=== PATIENT | female | born 1940 | race Caucasian/White ===

== ENCOUNTER → 2022-03-23 | Outpatient (CLI) | payer MEDICARE ==
--- NOTE | 2022-03-23 15:47 | XR ---
EXAMINATION TYPE: XR ankle complete LT DATE OF EXAM: 03/23/2022 COMPARISON: NONE HISTORY: Left ankle pain. TECHNIQUE: 3 views of the left ankle are submitted for evaluation. FINDINGS: Diffuse bone mineralization limits evaluation. There is no evidence for fracture or disloca tion. Ankle mortise is intact. Soft tissue swelling of the ankle. Plantar calcaneal enthesophyte. Vas cular sclerosis. IMPRESSION: 1. No evidence for acute fracture or dislocation. 2. Soft tissue swelling of the ankle.
== END | disposition home or self-care (01) ==
LOC: RADXRMAIN 15:22
PROVIDERS: ATTEND Nurse Practitioner Family
DX: M79.89 Other specified soft tissue disorders (principal); M25.572 Pain in left ankle and joints of left foot

== ENCOUNTER 2022-06-03 10:41 | Inpatient (IN) | payer MEDICARE ==
--- NOTE | 2022-06-03 11:47 | XR ---
EXAMINATION TYPE: XR chest 2V DATE OF EXAM: 06/03/2022 COMPARISON: None INDICATION: Difficulty in breathing TECHNIQUE: Frontal and lateral views of the chest are obtained. FINDINGS: The heart size is normal. The pulmonary vasculature is normal. There is a moderate to large right pleural effusion. Small nodularity is in the right peripheral upp er lung field measuring 1 cm. Follow-up is recommended.. IMPRESSION: 1. Moderate to large right pleural effusion. 2. There is a 1 cm nodular density peripheral right upper lung field. Follow-up recommended.
[2022-06-03 12:47] LABS: Basophils % (A) 0 %; Eosinophils # (A) 0.1 k/uL (0-0.7); Eosinophils % (A) 1 %; HCT 43.6 % (34.0-46.0); HGB 14.7 gm/dL (11.4-16.0); Lymphocytes # (A) 2.1 k/uL (1.0-4.8); Lymphocytes % (A) 20 %; MCH 32.6 pg (25.0-35.0); MCHC 33.6 g/dL (31.0-37.0); MCV 96.9 fL (80.0-100.0); Mean Platelet Volume 8.6; Monocytes # (A) 0.6 k/uL (0-1.0); Monocytes % (A) 5 %; Neutrophils # (A) 7.7 k/uL (1.3-7.7); Neutrophils % (A) 73 %; Platelet Count 298 k/uL (150-450); RDW 12.7 % (11.5-15.5); WBC 10.6 k/uL (3.8-10.6)
[2022-06-03 12:48] LABS: VBG PH 7.55 (7.31-7.41)
[2022-06-03 13:09] LABS: Calcium 9.3 mg/dL (8.4-10.2); Potassium 4.8 mmol/L (3.5-5.1); Total Bilirubin 0.9 mg/dL (0.2-1.3)
[2022-06-03 13:10] LABS: Total Protein 7.5 g/dL (6.3-8.2)
--- NOTE | 2022-06-03 13:15 | ED ---
SOB HPI - General Chief Complaint: Shortness of Breath Stated Complaint: sob Time Seen by Provider: 06/03/22 11:52 Source: patient, family Mode of arrival: wheelchair Limitations: no limitations - History of Present Illness Initial Comments: Patient is an 81-year-old female who presents to the emergency department with chief complaint shortness of breath. Symptoms started 1 week ago. Shortness of breath is not getting worse however patient is not feeling any improvement. States she feels very winded with activity. She does admit to intermittent dry cough. She denies fever, chills, other upper respiratory symptoms, chest pain, lightheadedness, dizziness, abdominal pain, nausea, vomiting. Denies past and present use of tobacco. Denies history of asthma and COPD - Related Data Home Medications Medication Instructions Recorded Confirmed Atorvastatin [Lipitor] 10 mg PO DAILY 06/03/22 06/03/22 Calcium Carbonate [Tums] 1,000 mg PO TID PRN 06/03/22 06/03/22 Famotidine/Ca Carb/Mag Hydrox 1 tab PO TID PRN 06/03/22 06/03/22 [Pepcid Complete Tablet Chew] Levothyroxine Sodium [Synthroid] 88 mcg PO DAILY 06/03/22 06/03/22 glipiZIDE [glipiZIDE ER] 2.5 mg PO DAILY 06/03/22 06/03/22 sitaGLIPtin PHOS/metFORMIN HCL 1 tab PO BID 06/03/22 06/03/22 [Janumet 50-500 mg Tablet] Allergies Allergy/AdvReac Type Severity Reaction Status Date / Time Fish Containing Products Allergy Nausea & Verified 06/03/22 12:29 [Fish] Vomiting Sulfa (Sulfonamide Allergy Rash/Hives Verified 06/03/22 12:29 Antibiotics) Review of Systems ROS Statement: Those systems with pertinent positive or pertinent negative responses have been documented in the HPI. ROS Other: All systems not noted in ROS Statement are negative. Past Medical History Past Medical History: Diabetes Mellitus, Thyroid Disorder Additional Past Medical History / Comment(s): graves disease History of Any Multi-Drug Resistant Organisms: None Reported Past Surgical History: Cholecystectomy, Hysterectomy Past Psychological History: No Psychological Hx Reported Smoking Status: Never smoker Past Alcohol Use History: None Reported Past Drug Use History: None Reported General Exam Limitations: no limitations General appearance: alert, in no apparent distress Head exam: Present: atraumatic, normocephalic, normal inspection Eye exam: Present: normal appearance, PERRL, EOMI. Absent: scleral icterus, conjunctival injection, periorbital swelling ENT exam: Present: normal exam, other (no tracheal deviation ) Respiratory exam: Present: decreased breath sounds (right sided, more so in lower lung bo). Absent: normal lung sounds bilaterally, respiratory distress, wheezes, rales, rhonchi, stridor, chest wall tenderness, accessory muscle use, prolonged expiratory Cardiovascular Exam: Present: regular rate, normal rhythm, normal heart sounds. Absent: systolic murmur, diastolic murmur, rubs, gallop, clicks GI/Abdominal exam: Present: soft, normal bowel sounds. Absent: distended, tenderness, guarding, rebound, rigid Neurological exam: Present: alert, oriented X3, CN II-XII intact Psychiatric exam: Present: normal affect, normal mood Skin exam: Present: warm, dry, intact, normal color. Absent: rash Course Vital Signs 06/03/22 06/03/22 06/03/22 10:58 12:40 14:04 Temperature 97.8 F Pulse Rate 98 98 Respiratory 20 18 20 Rate Blood Pressure 142/89 148/86 O2 Sat by Pulse 96 96 Oximetry 06/03/22 06/03/22 06/03/22 15:51 15:55 17:22 Temperature Pulse Rate 100 100 104 H Respiratory 18 18 18 Rate Blood Pressure 136/76 139/83 139/83 O2 Sat by Pulse 94 L 96 96 Oximetry Medical Decision Making - Medical Decision Making Was pt. sent in by a medical professional or institution? No Did you speak to anyone other than the patient for history? No Did you review nursing and triage notes? No, patient is short of breath however breath sounds on the right are not absent. They are diminished. Were old charts reviewed? Yes Differential Diagnosis? Coronary syndrome, arrhythmia, tamponade, asthma, COPD, pulmonary embolism, pneumonia, pneumothorax, pulmonary effusion, this is not meant to be an all- inclusive list. EKG interpreted by me (3pts min.)? Yes, showing sinus rhythm without ST segment or T-wave abnormality. Ventricular rate 96, MA interval 148, QRS duration 82, QTC 397 X-rays interpreted by me (1pt min.)? Yes, x-ray obtained and interpreted by me which shows moderate to large right pleural effusion. There is also 1 cm nodular density in the peripheral right upper lung field CT interpreted by me (1pt min.)? Yes, CT of the chest with angio obtained and interpreted by me which is negative for PE. It does show a nodular density in the peripheral right upper lung field with eccentric calcification and right-sided pleural effusion. U/S interpreted by me (1pt. min.)? NA What testing was considered but not performed? (CT, X-rays, U/S, labs)? Why? NA What meds were considered but not given? Why? None Did you discuss the management of the patient with other professionals? Yes, I discussed this case my attending Dr. Cuevas. Did you reconcile home meds? Yes Was smoking cessation discussed for >3mins.? NA Was critical care preformed (if so, how long)? No Were there social determinants of health that impacted care today? How? (Homelessness, low income, unemployed, alcoholism, drug addiction, transportation, low edu. Level, literacy, decrease access to med. care, nursing home, rehab)? No Was there de-escalation of care discussed even if they declined? (Discuss DNR or withdrawal of care, Hospice)? No What co-morbidities impacted this encounter? (DM, HTN, Smoking, COPD, CAD, Cancer, CVA, Hep., AIDS, mental health diagnosis, sleep apnea, morbid obesity)? DM Was patient admitted / discharged? This is an 81-year-old female presenting with shortness of breath. Patient well appearing with no increase work of breathing. No hypoxia. There are dimin ished lung sounds on the right, mainly lower lung bo. Troponin, BNP within normal limits. D-dimer elevated at 2.07. COVID-19, RSV, influenza and not detected. Chest x-ray shows moderate to large right pleural effusion. No previous chest x-ray for comparison. Patient denies history pleural effusion. CT angiogram of the chest negative for PE. At this time the etiology pleural effusion is unknown. Patient will be admitted for thoracentesis. Case discussed with Dr. Case who accepts admission. Pulmonary on consult. Undiagnosed new problem with uncertain prognosis? No Drug Therapy requiring intensive monitoring for toxicity (Heparin, Nitro, Insulin, Cardizem)? No Were any procedures done? No Diagnosis/symptom? SOB, right pleural effusion Acute, or Chronic, or Acute on Chronic? Acute Uncomplicated (without systemic symptoms) or Complicated (systemic symptoms)? Uncomplicated Side effects of treatment? NA Exacerbation, Progression, or Severe Exacerbation] NA Poses a threat to life or bodily function? Not currently - Lab Data Result diagrams: 06/03/22 12:35 06/03/22 12:35 Lab Results 06/03/22 06/03/22 06/03/22 Range/Units 12:35 12:35 12:35 WBC 10.6 (3.8-10.6) k/uL RBC 4.50 (3.80-5.40) m/uL Hgb 14.7 (11.4-16.0) gm/dL Hct 43.6 (34.0-46.0) % MCV 96.9 (80.0-100.0) fL MCH 32.6 (25.0-35.0) pg MCHC 33.6 (31.0-37.0) g/dL RDW 12.7 (11.5-15.5) % Plt Count 298 (150-450) k/uL MPV 8.6 Neutrophils % 73 % Lymphocytes % 20 % Monocytes % 5 % Eosinophils % 1 % Basophils % 0 % Neutrophils # 7.7 (1.3-7.7) k/uL Lymphocytes # 2.1 (1.0-4.8) k/uL Monocytes # 0.6 (0-1.0) k/uL Eosinophils # 0.1 (0-0.7) k/uL Basophils # 0.0 (0-0.2) k/uL PT (9.0-12.0) sec INR (<1.2) APTT (22.0-30.0) sec D-Dimer (<0.60) mg/L FEU VBG pH (7.31-7.41) VBG pCO2 (37-51) mmHg VBG HCO3 (24-28) mmol/L Sodium 141 (137-145) mmol/L Potassium 4.8 (3.5-5.1) mmol/L Chloride 111 H (98-107) mmol/L Carbon Dioxide 23 (22-30) mmol/L Anion Gap 7 mmol/L BUN 11 (7-17) mg/dL Creatinine 0.82 (0.52-1.04) mg/dL Est GFR (CKD-EPI)AfAm 78 (>60 ml/min/1.73 sqM) Est GFR (CKD-EPI)NonAf 68 (>60 ml/min/1.73 sqM) Glucose 108 H (74-99) mg/dL Plasma Lactic Acid Chapo (0.7-2.0) mmol/L Calcium 9.3 (8.4-10.2) mg/dL Total Bilirubin 0.9 (0.2-1.3) mg/dL AST 50 H (14-36) U/L ALT 17 (4-34) U/L Alkaline Phosphatase 92 (38-126) U/L Troponin I <0.012 (0.000-0.034) ng/mL NT-Pro-B Natriuret Pep pg/mL Total Protein 7.5 (6.3-8.2) g/dL Albumin 4.0 (3.5-5.0) g/dL Influenza Type A (PCR) (Not Detectd) Influenza Type B (PCR) (Not Detectd) RSV (PCR) (Not Detectd) SARS-CoV-2 (PCR) (Not Detectd) 06/03/22 06/03/22 06/03/22 Range/Units 12:35 12:35 12:35 WBC (3.8-10.6) k/uL RBC (3.80-5.40) m/uL Hgb (11.4-16.0) gm/dL Hct (34.0-46.0) % MCV (80.0-100.0) fL MCH (25.0-35.0) pg MCHC (31.0-37.0) g/dL RDW (11.5-15.5) % Plt Count (150-450) k/uL MPV Neutrophils % % Lymphocytes % % Monocytes % % Eosinophils % % Basophils % % Neutrophils # (1.3-7.7) k/uL Lymphocytes # (1.0-4.8) k/uL Monocytes # (0-1.0) k/uL Eosinophils # (0-0.7) k/uL Basophils # (0-0.2) k/uL PT (9.0-12.0) sec INR (<1.2) APTT (22.0-30.0) sec D-Dimer (<0.60) mg/L FEU VBG pH 7.55 H (7.31-7.41) VBG pCO2 22 L (37-51) mmHg VBG HCO3 19 L (24-28) mmol/L Sodium (137-145) mmol/L Potassium (3.5-5.1) mmol/L Chloride (98-107) mmol/L Carbon Dioxide (22-30) mmol/L Anion Gap mmol/L BUN (7-17) mg/dL Creatinine (0.52-1.04) mg/dL Est GFR (CKD-EPI)AfAm (>60 ml/min/1.73 sqM) Est GFR (CKD-EPI)NonAf (>60 ml/min/1.73 sqM) Glucose (74-99) mg/dL Plasma Lactic Acid Chapo (0.7-2.0) mmol/L Calcium (8.4-10.2) mg/dL Total Bilirubin (0.2-1.3) mg/dL AST (14-36) U/L ALT (4-34) U/L Alkaline Phosphatase (38-126) U/L Troponin I (0.000-0.034) ng/mL NT-Pro-B Natriuret Pep 105 pg/mL Total Protein (6.3-8.2) g/dL Albumin (3.5-5.0) g/dL Influenza Type A (PCR) Not Detected (Not Detectd) Influenza Type B (PCR) Not Detected (Not Detectd) RSV (PCR) Not Detected (Not Detectd) SARS-CoV-2 (PCR) Not Detected (Not Detectd) 06/03/22 06/03/22 Range/Units 13:10 13:15 WBC (3.8-10.6) k/uL RBC (3.80-5.40) m/uL Hgb (11.4-16.0) gm/dL Hct (34.0-46.0) % MCV (80.0-100.0) fL MCH (25.0-35.0) pg MCHC (31.0-37.0) g/dL RDW (11.5-15.5) % Plt Count (150-450) k/uL MPV Neutrophils % % Lymphocytes % % Monocytes % % Eosinophils % % Basophils % % Neutrophils # (1.3-7.7) k/uL Lymphocytes # (1.0-4.8) k/uL Monocytes # (0-1.0) k/uL Eosinophils # (0-0.7) k/uL Basophils # (0-0.2) k/uL PT 9.8 (9.0-12.0) sec INR 0.9 (<1.2) APTT 21.1 L (22.0-30.0) sec D-Dimer 2.07 H (<0.60) mg/L FEU VBG pH (7.31-7.41) VBG pCO2 (37-51) mmHg VBG HCO3 (24-28) mmol/L Sodium (137-145) mmol/L Potassium (3.5-5.1) mmol/L Chloride (98-107) mmol/L Carbon Dioxide (22-30) mmol/L Anion Gap mmol/L BUN (7-17) mg/dL Creatinine (0.52-1.04) mg/dL Est GFR (CKD-EPI)AfAm (>60 ml/min/1.73 sqM) Est GFR (CKD-EPI)NonAf (>60 ml/min/1.73 sqM) Glucose (74-99) mg/dL Plasma Lactic Acid Chapo 1.3 (0.7-2.0) mmol/L Calcium (8.4-10.2) mg/dL Total Bilirubin (0.2-1.3) mg/dL AST (14-36) U/L ALT (4-34) U/L Alkaline Phosphatase (38-126) U/L Troponin I (0.000-0.034) ng/mL NT-Pro-B Natriuret Pep pg/mL Total Protein (6.3-8.2) g/dL Albumin (3.5-5.0) g/dL Influenza Type A (PCR) (Not Detectd) Influenza Type B (PCR) (Not Detectd) RSV (PCR) (Not Detectd) SARS-CoV-2 (PCR) (Not Detectd) Disposition Clinical Impression: Pleural effusion, right, Shortness of breath Disposition: ADMITTED IP TO THIS [facility] Condition: Fair Referrals: Dakota Sutton DO [Primary Care Provider] - 1-2 days
[2022-06-03 13:58] LABS: INR 0.9 (<1.2); Prothrombin Time 9.8 sec (9.0-12.0)
[2022-06-03 14:01] LABS: Partial Thromboplastin Time 21.1 sec (22.0-30.0)
--- NOTE | 2022-06-03 15:02 | CT ---
CT CHEST FOR PULMONARY EMBOLISM. EXAMINATION TYPE: CT chest angio for PE DATE OF EXAM: 06/03/2022 INDICATION: SOB CT DLP: 420.3 mGycm, Automated exposure control for dose reduction was used. CONTRAST: Patient injected with 70cc mL of Isovue 370. COMPARISON: None TECHNIQUE: CT of the chest is performed on a spiral scan at 2 mm thick sections. Study is performed with intravenous contrast timed for evaluation for pulmonary embolism. This will limit additional po rtions of the evaluation. 3-D MIP images reconstructed by the technologist are reviewed on the compu ter in the coronal and sagittal planes. FINDINGS: There is a large right pleural effusion. Compressive atelectasis of the right lower lung field is tia dent. No persistent filling defects are evident to suggest an acute pulmonary embolism. No mediastinal or hilar adenopathy enlarged by CT criteria is evident. The ascending aorta diameter at the level of the main pulmonary artery is 3.4 cm. The main pulmonary artery diameter at the bifur cation is 2.4 cm. There may be a nodular density with eccentric calcification in the anterior peripheral right upper alireza ng field. This measures 1.2 x 1.0 cm in size. Series 406 image 55. An additional nodule which appears to have a central calcification is in the left anterior upper lung field measuring 1.0 cm. Series [address] section through the upper abdomen are unremarkable. IMPRESSIONS: 1. No acute pulmonary embolism. 2. Moderate to large right pleural effusion. 3. Nodular density peripheral right upper lung field with an eccentric calcification. This cannot be classified as a simple granuloma. PET/CT could be performed. An additional probable granulomas in th e left upper lobe. Short-term follow-up in 3 months is recommended.
[2022-06-03] MEDS ORDERED: CALCIUM CARBONATE 500 MG CHEWABLE PO PRN (17:03)
[2022-06-03] MEDS ORDERED: ALPRAZolam 0.25 MG TAB PO PRN (17:07)
[2022-06-03] MEDS ORDERED: FAMOTIDINE 20 MG TAB PO PRN (17:07)
[2022-06-03] MEDS ORDERED: ACETAMINOPHEN TAB 500 MG TAB PO PRN (17:07)
[2022-06-03] MEDS ORDERED: NALOXONE 0.4 MG/ML 1 ML VIAL IV PRN (17:08)
[2022-06-03] MEDS: SODIUM CHLORIDE 0.9% 1,000 ML IV SCH (17:16)
[2022-06-03] MEDS: HEPARIN SODIUM,PORCINE/PF 5,000 UNIT/0.5 ML SYRINGE SQ SCH (20:10)
--- NOTE | 2022-06-03 23:00 | HP ---
HISTORY AND PHYSICAL CHIEF COMPLAINT: Shortness of breath. HISTORY OF PRESENT ILLNESS: This is an 81-year-old woman with a past medical history of multiple medical problems, diabetes mellitus, hypothyroidism, history of Graves disease, being followed by Dr. Dakota Sutton in the outpatient complaining of increasing shortness of breath. The patient came to [facility], found to have right pleural effusion, D-dimer is slightly elevated. The CT angio showed no evidence of pulmonary embolism, right pulmonary nodule suspected, and there is no history of any fever, rigors, or chills at this time. The NT proBNP was only 105. PAST MEDICAL HISTORY: Diabetes mellitus, hypothyroidism, Graves disease, rest of the history and rest of the chart is reviewed. HOME MEDICATIONS: Reviewed include Janumet, dose and rest of medications noted. ALLERGIES: Fish, rest of allergies noted. FAMILY HISTORY: No history of heart disease or strokes in the family. SOCIAL HISTORY: No history of smoking or alcohol. REVIEW OF SYSTEMS: A 14-point review is negative except as mentioned earlier. PHYSICAL EXAMINATION: VITAL SIGNS: Pulse 100, blood pressure 113/80, respirations 18. HEENT: Conjunctivae normal. Oral mucosa moist. NECK: No jugular venous distention. CARDIOVASCULAR: S1, S2 muffled. RESPIRATION: Diminished on the right side. ABDOMEN: Soft, nontender. No masses palpable. LEGS: No edema, no swelling. NERVOUS SYSTEM: No focal deficits. SKIN: No ulcer, rash, bleeding. JOINTS: No active deforming arthropathy. LABS: Noted. D-dimer is 2.7. ASSESSMENT: 1. Right pleural effusion, shortness of breath, for evaluation. 2. Right lung nodule, possibly. 3. Elevated D-dimer without any evidence of pulmonary embolism. 4. Diabetes mellitus, type 2. 5. Hypothyroidism. 6. History of Graves disease. 7. History of multiple medical issues. RECOMMENDATIONS: This 81-year-old woman presented with multiple complex medical issues, we will monitor the patient closely. I will recommend a consult with Dr. Pickard. Resume the home medications. Also obtain a 2D echo with Doppler, possible thoracocenteses and further studies including cytology and cultures. The prognosis is guarded because of multiple complex medical conditions. Further recommendations to follow. Closely follow and discuss with family. Further recommendations to follow. MMODL / IJN: [id number] /
[2022-06-04] MEDS: LEVOTHYROXINE 88 MCG TAB PO SCH (06:42)
[2022-06-04 06:47] LABS: Glucose,Whole Blood 98 mg/dL (70-110)
[2022-06-04] MEDS: SODIUM CHLORIDE 0.9% 1,000 ML IV SCH (06:47)
--- NOTE | 2022-06-04 09:06 | US ---
EXAMINATION TYPE: US chest DATE OF EXAM: 06/04/2022 COMPARISON: NONE CLINICAL HISTORY: pleural effusions. TECHNIQUE: Targeted ultrasound of the posterior lower bilateral hemithoraces EXAM MEASUREMENTS: Right Pleural Effusion pocket size: 9.7 cm Right skin surface to fluid distance: 3.5 cm Left Pleural Effusion pocket size: 0 cm Right side marked for possible thoracentesis outside the dept. Pulmonologists are able to review the images in the patient?s EMR. IMPRESSIONS: 1. Right pleural effusion.
[2022-06-04] MEDS: HEPARIN SODIUM,PORCINE/PF 5,000 UNIT/0.5 ML SYRINGE SQ SCH ×3 (09:21→20:43)
--- NOTE | 2022-06-04 10:23 | XR ---
EXAMINATION TYPE: XR chest 1V portable DATE OF EXAM: 06/04/2022 COMPARISON: 06/03/2022 INDICATION: Postthoracentesis right side TECHNIQUE: Single frontal view of the chest is obtained. FINDINGS: The heart size is mildly prominent. The pulmonary vasculature is normal. Small bilateral pleural effusions are present. The right pleural effusion is diminished from comparis on. Previous right upper lobe nodule is poorly visualized this time. An EKG lead attachments in this oliver on which may obscure underlying findings IMPRESSION: 1. No pneumothorax post right-sided thoracentesis. Small to moderate residual right pleural effusion remains present. A small left pleural effusion is present.
[2022-06-04 10:36] LABS: Basophils # (A) 0.03 X 10*3/uL (0.00-0.10); Basophils % (A) 0.4 %; Eosinophils # (A) 0.04 X 10*3/uL (0.04-0.35); Eosinophils % (A) 0.5 %; HCT 42.1 % (37.2-46.3); HGB 13.4 g/dL (12.0-15.0); Immature Grans, Automated 0.2 %; Lymphocytes # (A) 2.23 X 10*3/uL (0.90-5.00); Lymphocytes % (A) 26.1 %; MCH 31.5 pg (27.0-32.0); MCHC 31.8 g/dL (32.0-37.0); MCV 99.1 fL (80.0-97.0); Mean Platelet Volume 10.4 fL (9.5-12.2); Monocytes # (A) 0.69 X 10*3/uL (0.20-1.00); Monocytes % (A) 8.1 %; NRBC Per 100 WBC 0 /100 WBCS (0.0-0.0); Neutrophils # (A) 5.55 X 10*3/uL (1.80-7.70); Neutrophils % (A) 64.7 %; Platelet Count 311 X 10*3/uL (140-440); RBC 4.25 X 10*6/uL (4.10-5.20); WBC 8.56 X 10*3/uL (4.50-10.00)
[2022-06-04] MEDS: ATORVASTATIN 10 MG TAB PO SCH (11:00)
[2022-06-04] MEDS: metFORMIN 500 MG TAB PO SCH ×2 (11:00→16:55)
[2022-06-04] MEDS: LINAGLIPTIN 5 MG TABLET PO SCH (11:00)
[2022-06-04 11:32] LABS: Glucose,Whole Blood 99 mg/dL (70-110)
--- NOTE | 2022-06-04 11:42 | PCN ---
PROCEDURE NOTE PROCEDURE: Right thoracentesis. PREOPERATIVE DIAGNOSIS: Right pleural effusion. POSTOPERATIVE DIAGNOSIS: Right pleural effusion. ASSISTANTS: Dr. Alejandre and Abhi Pritchard. DESCRIPTION OF PROCEDURE: There was informed consent and universal timeout. The patient's procedure took place in the patient's room. A time-out was completed verifying correct patient, procedure, site, positioning , and implant (s) or special equipment if applicable. The posterior chest was marked by ultrasound. Ultrasound guidance was used and appropriate fluid pocket was identified and marked. Patient was positioned, prepped and draped in usual sterile fashion. Lidocaine was used to anesthetize the area. A Thoracentesis catheter was introduced into the pleural space and fluid was removed. Blood loss was none. A chest x-ray was ordered to evaluate for pneumothorax. Total Fluid Removed: 1.5 L of yellow fluid was removed from the right pleural space. Color of Fluid: Yellow. Fluid will be sent for analysis including cytology, chemistry, and microbiology. Other than cough, the patient tolerated the procedure well. A chest x-ray was ordered after the procedure to rule out pneumothorax. MMODL / IJN: [id number] /
[2022-06-04 11:57] LABS: BUN/Creat Ratio 11.56 Ratio (12.00-20.00); Blood Urea Nitrogen 10.4 mg/dL (9.0-27.0); Calcium 9.2 mg/dL (8.7-10.3); Non-African American GFR(CKD) 60.4 (60.0-200.0); Potassium 4.2 mmol/L (3.5-5.5)
--- NOTE | 2022-06-04 15:17 | P.PN ---
Subjective This is a pleasant 81 years old female with past medical history of grave's disease, diabetes mellitus. Presents because of dyspnea secondary to a right pleural effusion with compressive atelectasis, she underwent thoracocentesis of the right side today with 1.5 of yellow-brown fluid has been drained out. Repeat chest x-ray showing no pneumothorax but small to moderate right residual pleural effusion. Sitting up in bed, looks comfortable and she denies dyspnea while at rest. No chest pain, no other GI or urinary complaints, patient feels somewhat weak. Vitisael looks stable, she is on 2 L oxygen with saturation of 95% reviewed and looks stable. Currently she is on normal saline 75 mL/h. Echocardiogram is pending. Patient has elevated d-dimer 2.0 on admission with no evidence of PE on CTA of the chest. We will check ultrasound of the legs. Patient and daughter at bedside informed about her bilateral upper lung nodule with the need for close outpatient follow-up with Dr. Pickard in 2-3 weeks post discharge and they are agreeable. Patient requests no code Discussed with the staff Objective - Vital Signs Vital signs: Vital Signs Temp 98.3 F 06/04/22 14:00 Pulse 97 06/04/22 14:00 Resp 17 06/04/22 14:00 BP 143/84 06/04/22 14:00 Pulse Ox 93 L 06/04/22 14:00 FiO2 Intake & Output 06/03/22 06/04/22 06/04/22 18:59 06:59 18:59 Intake Total 480 Balance 480 Weight 90.718 kg 90.718 kg Intake: Oral 480 Other: Voiding Method Toilet Toilet # Voids 2 - Exam GENERAL: The patient is alert and oriented x3, not in any acute distress. Well developed, well nourished. HEENT: Pupils are round and equally reacting to light. EOMI. No scleral icterus. No conjunctival pallor. Normocephalic, atraumatic. No pharyngeal erythema. No thyromegaly. CARDIOVASCULAR: S1 and S2 present. No murmurs, rubs, or gallops. PULMONARY: Chest is clear to auscultation, no wheezing or crackles. ABDOMEN: Soft, nontender, nondistended, normoactive bowel sounds. No palpable organomegaly. MUSCULOSKELETAL: No joint swelling or deformity. EXTREMITIES: No cyanosis, clubbing, or pedal edema. NEUROLOGICAL: Gross neurological examination did not reveal any focal deficits. SKIN: No rashes. no petechiae. - Labs CBC & Chem 7: 06/04/22 06:46 06/04/22 06:46 Labs: Abnormal Lab Results - Last 24 Hours (Table) 06/04/22 06/04/22 Range/Units 06:46 06:46 MCV 99.1 H (80.0-97.0) fL MCHC 31.8 L (32.0-37.0) g/dL BUN/Creatinine Ratio 11.56 L (12.00-20.00) Ratio Assessment and Plan Assessment: Right pleural effusion with compressive atelectasis status post thoracocentesis with 1500 L of fluid taken out Bilateral upper lung nodule, on the right 1.2 cm and on the left 1.0 cm type 2 diabetes mellitus hypothyroidism Plan: Status post thoracocentesis, follow-up results Follow-up echocardiogram Follow-up ultrasound of the leg Patient and daughter at bedside informed about the need for close outpatient fo llow-up with operations intelligence and they verbalized understanding and acceptance. Risks and benefits were explained. Labs and medication were reviewed.. Continue same treatment. Continue with symptomatic treatment. Resume home medication. Monitor labs and vitals. DVT and GI prophylaxis. Further recommendations as per clinical course of the patient DVT prophylaxis: Subcutaneous heparin GI Prophylaxis: Pepcid PT/OT: Pending Prognosis is guarded
--- NOTE | 2022-06-04 16:24 | P.CNPUL ---
History of Present Illness Consult date: 06/04/22 Requesting physician: Samra Case Reason for consult: dyspnea, hypoxemia, pleural effusion, abnormal CXR/CT Chief complaint: Shortness of breath. History of present illness: Pulmonary consult dated 06/04/2022. 81-year-old female seen in the emergency department, on June 03, complaining of shortness of breath. The patient states that her symptoms started about a week prior, and maybe a bit longer than that. The patient's shortness of breath apparently had been getting worse, and does also have a dry cough. He denied any fever or chills. She also denied any chest pain or chest discomfort. The shortness of breath is worse on exertion. She has never had this problem before. A chest x-ray in the emergency department showed a large right-sided pleural effusion. We did thoracentesis today, and 1.5 L of fluid was removed from the right pleural space. The patient was seen today in room 467, she is receiving saline at 75 mL an hour, and is on 2 L of oxygen. White count 8.6, h emoglobin 13.4, hematocrit 42.1, and platelet count normal. D-dimer was 2.07. Venous blood gases show a PE CO2 of 22, and a pH is 7.55. This is consistent with hyperventilation. Sodium, potassium, chloride, CO2, anion gap, E1, and creatinine are all normal. N-terminal proBNP was 105. Testing for influenza, respiratory syncytial virus, and coronavirus, were all negative. CT angiogram was negative for pulmonary embolism, showed a moderate to large right-sided pleural effusion, and a nodular density in the peripheral right upper lung field with eccentric calcification. Review of Systems REVIEW OF SYSTEMS: CONSTITUTIONAL: [Negative.] NEUROLOGIC: [ Negative.] HEENT: [ Negative.] CARDIAC: [Negative.] PULMONARY: Shortness of breath, worse on exertion. Dry nonproductive cough. GI: [Negative.] : [Negative.] RHEUMATOLOGIC: [ Negative.] IMMUNOLOGIC: [ Negative.] ENDOCRINE: [Negative. ] DERMATOLOGIC: [Negative.] Past Medical History Past Medical History: Diabetes Mellitus, Thyroid Disorder Additional Past Medical History / Comment(s): Type 2 diabetes, graves disease History of Any Multi-Drug Resistant Organisms: None Reported Past Surgical History: Cholecystectomy, Hysterectomy Additional Past Surgical History / Comment(s): cataract surgery Past Anesthesia/Blood Transfusion Reactions: No Reported Reaction Past Psychological History: No Psychological Hx Reported Smoking Status: Never smoker Past Alcohol Use History: None Reported Past Drug Use History: None Reported Medications and Allergies Home Medications Medication Instructions Recorded Confirmed Type Atorvastatin [Lipitor] 10 mg PO DAILY 06/03/22 06/03/22 History Calcium Carbonate [Tums] 1,000 mg PO TID PRN 06/03/22 06/03/22 History Famotidine/Ca Carb/Mag Hydrox 1 tab PO TID PRN 06/03/22 06/03/22 History [Pepcid Complete Tablet Chew] Levothyroxine Sodium [Synthroid] 88 mcg PO DAILY 06/03/22 06/03/22 History glipiZIDE [glipiZIDE ER] 2.5 mg PO DAILY 06/03/22 06/03/22 History sitaGLIPtin PHOS/metFORMIN HCL 1 tab PO BID 06/03/22 06/03/22 History [Janumet 50-500 mg Tablet] Allergies Allergy/AdvReac Type Severity Reaction Status Date / Time Fish Containing Products Allergy Nausea & Verified 06/03/22 12:29 [Fish] Vomiting Sulfa (Sulfonamide Allergy Rash/Hives Verified 06/03/22 12:29 Antibiotics) Physical Exam Osteopathic Statement: *. No significant issues noted on an osteopathic structural exam other than those noted in the History and Physical/Consult. Vitals: Vital Signs Temp Pulse Pulse Resp BP BP Pulse Ox 06/04/22 14:00 98.3 F 97 17 143/84 93 L 06/04/22 08:00 97.5 F L 92 14 135/82 96 06/04/22 02:00 97.6 F 99 26 H 139/82 93 L 06/03/22 20:40 97.9 F 104 H 19 140/83 96 06/03/22 19:31 97.9 F 107 H 18 139/89 95 06/03/22 17:22 104 H 18 139/83 96 Intake and Output 06/04/22 06/04/22 06/04/22 06:59 14:59 22:59 Intake Total 480 Balance 480 Intake: Oral 480 Other: Voiding Method Toilet # Voids 2 No acute distress, oriented 3. Currently on 2 L of oxygen. No respiratory distress. HEENT examination is grossly unremarkable. Neck supple. Full range of motion. No adenopathy thyromegaly or neck vein distention. Cardiovascular examination reveals regular rhythm rate. S1-S2 normal. No S3 or S4. Soft systolic murmur. Heart rate 92 bpm. Lungs reveal dullness at the right base, and decreased breath sounds at the right base. Left lung is clear. Saturations are 93%. Abdomen soft bowel sounds are heard. No masses or tenderness. Extremities are intact. No cyanosis clubbing or edema. Skin is without rash or lesion. Neurologic examination is brief but nonfocal. Results - Laboratory Findings CBC and BMP: 06/04/22 06:46 06/04/22 06:46 PT/INR, D-dimer PT 9.8 sec (9.0-12.0) 06/03/22 13:10 INR 0.9 (<1.2) 06/03/22 13:10 D-Dimer 2.07 mg/L FEU (<0.60) H 06/03/22 13:10 Abnormal lab findings: Abnormal Labs 06/03/22 06/03/22 06/03/22 12:35 12:35 13:10 MCV MCHC APTT 21.1 L D-Dimer 2.07 H VBG pH 7.55 H VBG pCO2 22 L VBG HCO3 19 L Chloride 111 H BUN/Creatinine Ratio Glucose 108 H AST 50 H 06/04/22 06/04/22 06:46 06:46 MCV 99.1 H MCHC 31.8 L APTT D-Dimer VBG pH VBG pCO2 VBG HCO3 Chloride BUN/Creatinine Ratio 11.56 L Glucose AST - Diagnostic Findings Chest x-ray: image reviewed CT scan - chest: image reviewed Assessment and Plan Assessment: Relatively new onset shortness of breath, worse on exertion, and a moderately large right-sided pleural effusion. In addition, the patient has a nodular density in the right upper lobe, with eccentric calcification, raising the suspicion of malignancy. Status post right-sided thoracentesis, 06/04/2022, with 1.5 L removed. Lifelong nonsmoker. History of hyperlipidemia. History of hypothyroidism. History of diabetes mellitus. Plan: Plan dated 06/04/2022. Patient had thoracentesis, today, and 1.5 L of fluid was removed from the right pleural space. It will be sent for analysis including cytology, chemistry, and microbiology. The patient will need outpatient evaluation and further workup of the nodular density in the right upper lobe. She will likely benefit from a PET scan. She is a lifelong nonsmoker. We will continue to follow make recommendations along the way. Time with Patient: Greater than 30
[2022-06-04 16:27] LABS: Glucose,Whole Blood 86 mg/dL (70-110)
--- NOTE | 2022-06-04 16:31 | US ---
EXAMINATION TYPE: US venous doppler duplex LE DATE OF EXAM: 06/04/2022 4:19 PM COMPARISON: NONE CLINICAL HISTORY: leg swelling. elevated D-Dimer. Edema SIDE PERFORMED: bilateral TECHNIQUE: The lower extremity deep venous system is examined utilizing real time linear array sonog anna with graded compression, doppler sonography and color-flow sonography. VESSELS IMAGED: Common Femoral Vein Deep Femoral Vein Greater Saphenous Vein * Femoral Vein Popliteal Vein Small Saphenous Vein * Proximal Calf Veins (* superficial vessels) Right Leg: no evidence of DVT Left Leg: Rouleaux flow noted. limitations due to patient's body habitus. difficult to visualize fem oral vein. patient unable to tolerate compressions femoral vein. Grayscale, color doppler, spectral doppler imaging performed of the deep veins of the lower extremiti es. There is normal flow, compressibility, vascular waveforms. IMPRESSION: No evidence for deep vein thrombosis of either lower extremity.
[2022-06-04 20:08] LABS: Glucose,Whole Blood 105 mg/dL (70-110)
[2022-06-04 23:32] LABS: Appearance,BF Hazy
[2022-06-05 00:05] LABS: Glucose, BF Source Thoracentesis Fluid; Glucose, Body Fluid 99 mg/dL; LDH, Body Fluid Source Thoracentesis Fluid; T. Protein, Body Fluid Source Thoracentesis Fluid; Total Protein, Body Fluid 4490 mg/dL
[2022-06-05] MEDS: SODIUM CHLORIDE 0.9% 1,000 ML IV SCH ×2 (00:20→08:06)
[2022-06-05 06:26] LABS: Glucose,Whole Blood 87 mg/dL (70-110)
[2022-06-05] MEDS: LEVOTHYROXINE 88 MCG TAB PO SCH (06:35)
[2022-06-05] MEDS: HEPARIN SODIUM,PORCINE/PF 5,000 UNIT/0.5 ML SYRINGE SQ SCH (08:06)
[2022-06-05] MEDS: LINAGLIPTIN 5 MG TABLET PO SCH (08:06)
[2022-06-05] MEDS: ATORVASTATIN 10 MG TAB PO SCH (08:06)
[2022-06-05] MEDS: metFORMIN 500 MG TAB PO SCH (08:06)
[2022-06-05 09:55] VITALS: BP 121/78; PULSE 84; RESP 17; TEMP 97.8
[2022-06-05 11:31] LABS: Glucose,Whole Blood 83 mg/dL (70-110)
--- NOTE | 2022-06-05 12:22 | CA ---
Transthoracic Echo Report Name: Rabia Henao Age: 81 Gender: F : 1940 Exam Date: 06/05/2022 09:14 Exam Location: [facility] Ht (in): 64 Wt (lb): 200 Ordering Physician: Samra Case MD Attending/Referring Phys: Billing Services Manager Sharonda Odom RDCS Procedure CPT: Indications: chf Cardiac Hx: Technical Quality: Contrast 1: Total Dose (mL): Contrast 2: Total Dose (mL): MEASUREMENTS (Male / Female) Normal Values 2D ECHO LV Diastolic Diameter PLAX 3.6 cm 4.2 - 5.9 / 3.9 - 5.3 cm LV Systolic Diameter PLAX 3.0 cm IVS Diastolic Thickness 1.3 cm 0.6 - 1.0 / 0.6 - 0.9 cm LVPW Diastolic Thickness 1.4 cm 0.6 - 1.0 / 0.6 - 0.9 cm LV Relative Wall Thickness 0.7 RV Internal Dim ED PLAX 2.5 cm LA Systolic Diameter LX 3.2 cm 3.0 - 4.0 / 2.7 - 3.8 cm M-MODE Aortic Root Diameter MM 2.9 cm LA Systolic Diameter MM 3.2 cm LA Ao Ratio MM 1.1 MV E Point Septal Separation 0.3 cm AV Cusp Separation MM 1.9 cm DOPPLER AV Peak Velocity 271.8 cm/s AV Peak Gradient 29.6 mmHg AV Mean Velocity 191.0 cm/s AV Mean Gradient 16.8 mmHg AV Velocity Time Integral 48.9 cm LVOT Peak Velocity 113.8 cm/s LVOT Peak Gradient 5.2 mmHg MV Area PHT 2.7 cm??? Mitral E Point Velocity 55.3 cm/s Mitral A Point Velocity 113.6 cm/s Mitral E to A Ratio 0.5 MV Deceleration Time 277.9 ms MV E' Velocity 6.0 cm/s Mitral E to MV E' Ratio 9.3 FINDINGS Left Ventricle Moderate LVH. Left ventricular cavity size normal. Left ventricular ejection fraction is estimated at 55-60%. Right Ventricle Normal right ventricular size and function. Right ventricular systolic pressure within normal limits. Right Atrium Normal right atrial size. Left Atrium Normal left atrial size. Mitral Valve Structurally normal mitral valve. Mild mitral regurgitation. Mitral anulus calcification Aortic Valve Aortic valve not well visualized. Mild aortic stenosis with a peak gradient of 30 mmHg and a mean gradient of 17 mmHg. Tricuspid Valve Structurally normal tricuspid valve.trace to mild tricuspid regurgitation. Pulmonic Valve Pulmonic valve not well visualized. Pericardium Echo free space anterior to the right ventricle likely represents a fat pad. Aorta Aortic root and proximal ascending aorta not well visualized. CONCLUSIONS 1. Normal left ventricle size and systolic function 2. Mild mitral regurgitation 3. Mild aortic stenosis Previewed by: Dr. Lulu Leach MD (Electronically Signed) Final Date: 05 June 2022 12:21
--- NOTE | 2022-06-05 14:54 | P.PN ---
Subjective Progress Note Date: 06/05/22 Principal diagnosis: Shortness of breath. Pulmonary consult dated 06/04/2022. 81-year-old female seen in the emergency department, on June 03, complaining of shortness of breath. The patient states that her symptoms started about a week prior, and maybe a bit longer than that. The patient's shortness of breath apparently had been getting worse, and does also have a dry cough. He denied any fever or chills. She also denied any chest pain or chest discomfort. The shortness of breath is worse on exertion. She has never had this problem before. A chest x-ray in the emergency department showed a large right-sided pleural effusion. We did thoracentesis today, and 1.5 L of fluid was removed from the right pleural space. The patient was seen today in room 467, she is receiving saline at 75 mL an hour, and is on 2 L of oxygen. White count 8.6, hemoglobin 13.4, hematocrit 42.1, and platelet count normal. D-dimer was 2.07. Venous blood gases show a PE CO2 of 22, and a pH is 7.55. This is consistent with hyperventilation. Sodium, potassium, chloride, CO2, anion gap, E1, and creatinine are all normal. N-terminal proBNP was 105. Testing for influenza, respiratory syncytial virus, and coronavirus, were all negative. CT angiogram was negative for pulmonary embolism, showed a moderate to large right-sided pleural effusion, and a nodular density in the peripheral right upper lung field with eccentric calcification. Progress note dated 06/05/2022. 81-year-old female that we saw in consultation yesterday for shortness of breath. She had a large right-sided pleural effusion, and we performed thoracentesis, and remove 1.5 L of fluid. The fluid is definitely exudative, with elevated LDH and protein. In addition, the patient was found to have a 12 mm nodule, and a right upper lobe, with eccentric calcification. The patient is feeling much better today, and is on room air. She is hoping to be discharged soon. No new laboratory data today. Objective - Vital Signs Vital signs: Vital Signs Temp 97.8 F 06/05/22 08:00 Pulse 84 06/05/22 08:00 Resp 17 06/05/22 08:00 BP 121/78 06/05/22 08:00 Pulse Ox 94 L 06/05/22 11:31 FiO2 Intake & Output 06/04/22 06/05/22 06/05/22 18:59 06:59 18:59 Other: Voiding Method Toilet Toilet # Voids 5 2 # Bowel Movements 2 - Exam No acute distress, oriented 3. Currently on room air. HEENT examination is grossly unremarkable. Neck supple. Full range of motion. No adenopathy thyromegaly or neck vein distention. Cardiovascular examination reveals regular rhythm rate. S1-S2 normal. No S3 or S4. Soft systolic murmur. Heart rate 84 bpm. Lungs reveal clear bilateral breath sounds. No wheezes. No rhonchi. No crackles. Room air saturation is 95%. Abdomen soft bowel sounds are heard. No masses or tenderness. Extremities are intact. No cyanosis clubbing or edema. Skin is without rash or lesion. Neurologic examination is brief but nonfocal. - Labs CBC & Chem 7: 06/04/22 06:46 06/04/22 06:46 Labs: Microbiology - Last 24 Hours (Table) 06/04/22 09:30 Gram Stain - Preliminary Pleural Fluid Body Fluid Culture - Preliminary 06/04/22 09:30 Acid Fast Bacilli Culture - Preliminary Pleural Fluid 06/04/22 09:30 Fungal Culture - Preliminary Pleural Fluid Assessment and Plan Assessment: Relatively new onset shortness of breath, worse on exertion, and a moderately large right-sided pleural effusion. In addition, the patient has a nodular density in the right upper lobe, with eccentric calcification, raising the suspicion of malignancy. Status post right-sided thoracentesis, 06/04/2022, with 1.5 L removed. Lifelong nonsmoker. History of hyperlipidemia. History of hypothyroidism. History of diabetes mellitus. Plan: Plan dated 06/04/2022. Patient had thoracentesis, today, and 1.5 L of fluid was removed from the right pleural space. It will be sent for analysis including cytology, chemistry, and microbiology. The patient will need outpatient evaluation and further workup of the nodular density in the right upper lobe. She will likely benefit from a PET scan. She is a lifelong nonsmoker. We will continue to follow make recommendations along the way. Plan dated 06/05/2022. The fluid removed from the right pleural space yesterday, was exudative in nature. In addition, the patient has a suspicious lesion in the right upper lobe, with eccentric calcification. We will await the cytology from the fluid. The patient will likely benefit from an outpatient PET scan. From the pulmonary standpoint, the patient could be discharged home. I've asked her to follow-up with me in the office. Her daughter, who is a nurse, will make sure that it happens. Time with Patient: Less than 30
--- NOTE | 2022-06-05 20:23 | P.DS ---
Providers Date of admission: 06/03/22 18:33 Attending physician: Samra Case Consults: 06/03/22 17:04 Consult Physician Routine Consulting Provider: Bg Pickard Consult Reason/Comments: rt pl effusion Do you want consulting provider notified?: Yes Primary care physician: Dakota Sutton Hospital Course: Diagnoses: Right pleural effusion with compressive atelectasis status post thoracocentesis with 1500 L of fluid taken out Bilateral upper lung nodule, on the right 1.2 cm and on the left 1.0 cm type 2 diabetes mellitus hypothyroidism Hospital course: This is a pleasant 81 years old female with past medical history of grave's disease, diabetes mellitus. Presents because of dyspnea secondary to a right pleural effusion with compressive atelectasis, she underwent thoracocentesis of the right side today with 1.5 of yellow-brown fluid has been drained out. Repeat chest x-ray showing no pneumothorax but small to moderate right residual pleural effusion. Patient and daughter are aware of bilateral apical pulmonary nodule with recommendation for follow-up was an outpatient. On the day of discharge patient she feels comfortable going home today. She denies dyspnea chest pain, no urinary or GI symptoms, no neurological symptoms, no new symptoms. Patient does not qualify for home oxygen Patient was cleared for discharge by pulmonary service Patient denies any other new symptoms. Problems and management plan were discussed with the patient and he verbalized understanding and acceptance Patient was found stable and can be discharged home in guarded prognosis however he needs follow-up as an outpatient. Patient was instructed to follow up with PCP Dr. Sutton within one week and patient and daughter both agree with the appointments made for him on 06/10 Also both patient and daughter agree with appointment made for her with Dr. Pickard hyperion essbase developer on 06/29 vestibular follow-up Physical exam Gen: patient is a AAOx3, no distress CVS: S1-S2, RRR, no murmur Lungs: B/L CTA, no wheezing Abdomen: soft, no distention, no tenderness, positive bowel sounds Extremity: no leg edema or induration Time spent more than 35 minutes Patient Condition at Discharge: Fair Plan - Discharge Summary Discharge Rx Participant: No New Discharge Prescriptions: New Acetaminophen Tab [Tylenol] 500 mg PO Q6HR PRN tab PRN Reason: Fever And/ Or Pain Continue Atorvastatin [Lipitor] 10 mg PO DAILY Calcium Carbonate [Tums] 1,000 mg PO TID PRN PRN Reason: Heartburn glipiZIDE [glipiZIDE ER] 2.5 mg PO DAILY Famotidine/Ca Carb/Mag Hydrox [Pepcid Complete Tablet Chew] 1 tab PO TID PRN PRN Reason: Indigestion Levothyroxine Sodium [Synthroid] 88 mcg PO DAILY sitaGLIPtin PHOS/metFORMIN HCL [Janumet 50-500 mg Tablet] 1 tab PO BID Discharge Medication List Atorvastatin [Lipitor] 10 mg PO DAILY 06/03/22 [History] Calcium Carbonate [Tums] 1,000 mg PO TID PRN 06/03/22 [History] Famotidine/Ca Carb/Mag Hydrox [Pepcid Complete Tablet Chew] 1 tab PO TID PRN 06/03/22 [History] Levothyroxine Sodium [Synthroid] 88 mcg PO DAILY 06/03/22 [History] glipiZIDE [glipiZIDE ER] 2.5 mg PO DAILY 06/03/22 [History] sitaGLIPtin PHOS/metFORMIN HCL [Janumet 50-500 mg Tablet] 1 tab PO BID 06/03/22 [History] Acetaminophen Tab [Tylenol] 500 mg PO Q6HR PRN tab 06/05/22 [Rx] Follow up Appointment(s)/Referral(s): Dakota Sutton DO [Primary Care Provider] - 06/10/22 9:00 am Bg Pickard DO [Doctor of Osteopathic Medicine] - 06/29/22 9:45 am Balbir Rogers MD [STAFF PHYSICIAN] - 1 Week (Office will call patient for appointment ) [facility] Visiting Nurse, [NON-STAFF] - ([facility] homecare willcall you to schedule a visit) Patient Instructions/Handouts: Pleural Effusion (DC) Discharge Disposition: HOME WITH HOME HEALTH SERVICES
== END 2022-06-05 15:12 | disposition home health service (06) | DRG 206 ==
LOC: EC 10:41 → 4SSUR 18:33
PROVIDERS: ADMIT Hospitalist; ATTEND Hospitalist
PROC: 0W9930Z Drainage of Right Pleural Cavity with Drainage Device, Percutaneous Approach (ICD-10-PCS; principal; 2022-06-04)
DX: R91.1 Solitary pulmonary nodule (principal); J98.11 Atelectasis; Z20.822 Contact with and (suspected) exposure to COVID-19; E11.9 Type 2 diabetes mellitus without complications; R06.4 Hyperventilation; I08.3 Combined rheumatic disorders of mitral, aortic and tricuspid valves; E05.00 Thyrotoxicosis with diffuse goiter without thyrotoxic crisis or storm; E03.9 Hypothyroidism, unspecified; Z79.890 Hormone replacement therapy; E78.5 Hyperlipidemia, unspecified; F10.20 Alcohol dependence, uncomplicated; I10 Essential (primary) hypertension; Z91.013 Allergy to seafood; Z79.899 Other long term (current) drug therapy; Z90.710 Acquired absence of both cervix and uterus; Z79.84 Long term (current) use of oral hypoglycemic drugs; Z90.49 Acquired absence of other specified parts of digestive tract
CPT/HCPCS: 36415; 71045; 71046; 71275; 76604; 80048; 80053; 82803; 82945; 83605; 83615; 83880; 84157; 84484; 85025; 85379; 85610; 85730; 87070; 87102; 87116; 87205; 87206; 87252; 87636; 89050; 93005; 93306; 93970; 96360; 96361; 99285

== ENCOUNTER 2022-06-11 19:40 | Inpatient (IN) | payer MEDICARE ==
--- NOTE | 2022-06-11 21:30 | XR ---
EXAMINATION: XR chest 2V: 06/11/2022 9:05 PM CLINICAL INDICATION: difficulty breathing TECHNIQUE: Departmental protocol COMPARISON: 06/04/2022 FINDINGS: Since the prior study, the right pleural effusion has increased, it now occupies 75% of the right hem ithorax, having previously occupy approximately 50% of the right hemithorax. The right apex is clear, but there is complete atelectasis of the right middle lobe and right lower lobe and components of th e right. On the left, a small pleural effusion is present and partial airlessness of the left lower lobe. The left mid and upper lung are clear. Mediastinum is midline. There is no pneumothorax or other abnormal gas collection. No acute skeletal or soft tissue findings. IMPRESSION: Prominent interval worsening in the lung inflation pattern.
[2022-06-11 22:08] LABS: Basophils # (A) 0.1 k/uL (0-0.2); Basophils % (A) 1 %; Eosinophils # (A) 0.1 k/uL (0-0.7); Eosinophils % (A) 1 %; HCT 42.3 % (34.0-46.0); HGB 14.1 gm/dL (11.4-16.0); Lymphocytes # (A) 1.6 k/uL (1.0-4.8); Lymphocytes % (A) 15 %; MCH 32.6 pg (25.0-35.0); MCHC 33.3 g/dL (31.0-37.0); MCV 97.9 fL (80.0-100.0); Mean Platelet Volume 8.5; Monocytes # (A) 0.6 k/uL (0-1.0); Monocytes % (A) 5 %; Neutrophils # (A) 8.2 k/uL (1.3-7.7); Neutrophils % (A) 77 %; Platelet Count 377 k/uL (150-450); RBC 4.32 m/uL (3.80-5.40); RDW 12.3 % (11.5-15.5); WBC 10.7 k/uL (3.8-10.6)
[2022-06-11 22:18] LABS: Albumin 3.5 g/dL (3.5-5.0); Calcium 9.5 mg/dL (8.4-10.2); Total Bilirubin 0.7 mg/dL (0.2-1.3); Total Protein 6.7 g/dL (6.3-8.2)
[2022-06-11 22:20] LABS: Potassium 4.8 mmol/L (3.5-5.1)
[2022-06-11 22:36] LABS: INR 0.9 (<1.2); Partial Thromboplastin Time 23.6 sec (22.0-30.0); Prothrombin Time 9.6 sec (9.0-12.0)
--- NOTE | 2022-06-11 22:40 | ED ---
General Adult HPI - General Chief complaint: Shortness of Breath Stated complaint: SOB Time Seen by Provider: 06/11/22 21:32 Source: patient, family Mode of arrival: wheelchair Limitations: no limitations - History of Present Illness Initial comments: This is an 81-year-old female with a past medical history including hyperlipidemia and hypothyroidism presents emergency department for increasing exertional shortness of breath. The patient was admitted to the hospital last week and did have 1500 mL of fluid taken from her right lung. The patient was to follow-up with in the office at the end of June however it was reported by the patient and her daughter that the patient has had significant increasing shortness of breath over the last 2 days. The patient reportedly had hypoxia to the mid 70% range after walking throughout her home. The patient also had a resting pulse ox of between 88 and 90%. The patient did not have any COPD or CHF history. While resting in bed, the patient did have some minor tachypnea however was not any acute distress. The patient stated that when she is resting she is okay however she has significant increasing shortness of breath with exertion. The patient denied any fevers or chills as well as any nausea and vomiting. - Related Data Home Medications Medication Instructions Recorded Confirmed Atorvastatin [Lipitor] 10 mg PO DAILY 06/03/22 06/03/22 Calcium Carbonate [Tums] 1,000 mg PO TID PRN 06/03/22 06/03/22 Famotidine/Ca Carb/Mag Hydrox 1 tab PO TID PRN 06/03/22 06/03/22 [Pepcid Complete Tablet Chew] Levothyroxine Sodium [Synthroid] 88 mcg PO DAILY 06/03/22 06/03/22 glipiZIDE [glipiZIDE ER] 2.5 mg PO DAILY 06/03/22 06/03/22 sitaGLIPtin PHOS/metFORMIN HCL 1 tab PO BID 06/03/22 06/03/22 [Janumet 50-500 mg Tablet] Previous Rx's Medication Instructions Recorded Acetaminophen Tab [Tylenol] 500 mg PO Q6HR PRN tab 06/05/22 Allergies Allergy/AdvReac Type Severity Reaction Status Date / Time Fish Containing Products Allergy Nausea & Verified 06/03/22 12:29 [Fish] Vomiting Sulfa (Sulfonamide Allergy Rash/Hives Verified 06/03/22 12:29 Antibiotics) Review of Systems ROS Statement: Those systems with pertinent positive or pertinent negative responses have been documented in the HPI. ROS Other: All systems not noted in ROS Statement are negative. Past Medical History Past Medical History: Diabetes Mellitus, Thyroid Disorder Additional Past Medical History / Comment(s): Type 2 diabetes, graves disease History of Any Multi-Drug Resistant Organisms: None Reported Past Surgical History: Cholecystectomy, Hysterectomy Additional Past Surgical History / Comment(s): cataract surgery Past Anesthesia/Blood Transfusion Reactions: No Reported Reaction Past Psychological History: No Psychological Hx Reported Smoking Status: Never smoker Past Alcohol Use History: None Reported Past Drug Use History: None Reported General Exam Limitations: no limitations General appearance: alert, in no apparent distress Head exam: Present: atraumatic, normocephalic, normal inspection Eye exam: Present: normal appearance, PERRL Pupils: Present: normal accommodation ENT exam: Present: normal exam, normal oropharynx, mucous membranes moist Neck exam: Present: normal inspection, full ROM Respiratory exam: Present: decreased breath sounds (Decreased breath sounds to the right lung field, clear breath sounds noted on the left lung field) Cardiovascular Exam: Present: regular rate, normal rhythm, normal heart sounds GI/Abdominal exam: Present: soft, normal bowel sounds Extremities exam: Present: normal inspection, full ROM, normal capillary refill Back exam: Present: normal inspection, full ROM Neurological exam: Present: alert, oriented X3, CN II-XII intact Psychiatric exam: Present: normal affect, normal mood Skin exam: Present: warm, dry Course Vital Signs 06/11/22 20:45 Temperature 98 F Pulse Rate 106 H Respiratory 20 Rate Blood Pressure 152/84 O2 Sat by Pulse 92 L Oximetry EKG Findings - EKG Comments: EKG Findings:: An EKG was obtained and was interpreted by myself showing a rate of 104, [place] interval 139, QRS duration of 77 and QTC of 390. This EKG showed a sinus tachycardia without any ST segment elevation or depression noted. Medical Decision Making - Medical Decision Making Was pt. sent in by a medical professional or institution (, PA, ACQUISITIONS LIBRARIAN, urgent care, hospital, or shelter...) When possible be specific @ -Yes, Dr. Sutton and Dr. Pickard office Did you speak to anyone other than the patient for history (EMS, parent, family, police, friend...)? What history was obtained from this source @ -Yes, patient's daughters Did you review nursing and triage notes (agree or disagree)? Why? @ -I reviewed and agree with nursing and triage notes Were old charts reviewed (outside hosp., previous admission, EMS record, old EKG, old radiological studies, urgent care reports/EKG's, shelter records)? Report findings @ -Yes, previous admission chart was reviewed Differential Diagnosis (chest pain, altered mental status, abdominal pain women, abdominal pain men, vaginal bleeding, weakness, fever, dyspnea, syncope, headache, dizziness, GI bleed, back pain, seizure, CVA, palpatations, mental health)? @ -Pneumonia, congestive heart failure exacerbation, recurrent and worsening pleural effusion EKG interpreted by me (3pts min.). @ -As above X-rays interpreted by me (1pt min.). @ -Chest x-ray was obtained and was interpreted by myself showing worsening of the right-sided pleural effusion from previous evaluation CT interpreted by me (1pt min.). @ -None done U/S interpreted by me (1pt. min.). @ -None done What testing was considered but not performed or refused? (CT, X-rays, U/S, labs)? Why? @ -None What meds were considered but not given or refused? Why? @ -None Did you discuss the management of the patient with other professionals (professionals i.e. , PA, ACQUISITIONS LIBRARIAN, lab, RT, psych nurse, aids social worker, manager of corporate, teacher, fourth officer, case managers)? Give summary @ -Yes, admitting physician Was smoking cessation discussed for >3mins.? @ -No Was critical care preformed (if so, how long)? @ -No Were there social determinants of health that impacted care today? How? ( Homelessness, low income, unemployed, alcoholism, drug addiction, transportation, low edu. Level, literacy, decrease access to med. care, fci, rehab)? @ -No Was there de-escalation of care discussed even if they declined (Discuss DNR or withdrawal of care, Hospice)? DNR status @ -No What co-morbidities impacted this encounter? (DM, HTN, Smoking, COPD, CAD, Cancer, CVA, ARF, Chemo, Hep., AIDS, mental health diagnosis, sleep apnea, morbid obesity)? @ Yes, previous pleural effusion pending cytology results Was patient admitted / discharged? Hospital course, mention meds given and r oute, prescriptions, significant lab abnormalities, going to OR and other pertinent info. @ -The patient was seen and evaluated in the emergency department. Physical exam, the patient was resting in bed without any acute distress. The patient was hypoxic while resting in bed was placed on 2 L of nasal cannula oxygen. Workup showed a worsening right-sided pleural effusion as a cause of her increasing shortness of breath and exertional dyspnea. The patient was hypoxic and therefore didn't require admission. The patient's primary care physician was contacted and did accept the patient for admission at [id number]. The felter tennis balls will also be placed and consul at this time. The patient and her family were told of this plan and were agreeable. The patient was admitted in stable condition. Undiagnosed new problem with uncertain prognosis? @ -No Drug Therapy requiring intensive monitoring for toxicity (Heparin, Nitro, Insulin, Cardizem)? @ -No Were any procedures done? @ -No Diagnosis/symptom? @ -Shortness of breath and hypoxia secondary to worsening right-sided pleural effusion Acute, or Chronic, or Acute on Chronic? @ -Acute Uncomplicated (without systemic symptoms) or Complicated (systemic symptoms)? @ -Complicated Side effects of treatment? @ -No Exacerbation, Progression, or Severe Exacerbation? @ -Severe exacerbation Poses a threat to life or bodily function? How? (Chest pain, [place], [place], pneumonia, PE, COPD, DKA, ARF, appy, cholecystitis, CVA, Diverticulitis, Homicidal, Suicidal, threat to staff... and all critical care pts) @ -Yes, continued hypoxia, SOB - Lab Data Result diagrams: 06/11/22 21:40 06/11/22 21:40 Lab Results 06/11/22 06/11/22 06/11/22 Range/Units 21:40 21:40 21:40 WBC 10.7 H (3.8-10.6) k/uL RBC 4.32 (3.80-5.40) m/uL Hgb 14.1 (11.4-16.0) gm/dL Hct 42.3 (34.0-46.0) % MCV 97.9 (80.0-100.0) fL MCH 32.6 (25.0-35.0) pg MCHC 33.3 (31.0-37.0) g/dL RDW 12.3 (11.5-15.5) % Plt Count 377 (150-450) k/uL MPV 8.5 Neutrophils % 77 % Lymphocytes % 15 % Monocytes % 5 % Eosinophils % 1 % Basophils % 1 % Neutrophils # 8.2 H (1.3-7.7) k/uL Lymphocytes # 1.6 (1.0-4.8) k/uL Monocytes # 0.6 (0-1.0) k/uL Eosinophils # 0.1 (0-0.7) k/uL Basophils # 0.1 (0-0.2) k/uL PT 9.6 (9.0-12.0) sec INR 0.9 (<1.2) APTT 23.6 (22.0-30.0) sec Sodium 138 (137-145) mmol/L Potassium 4.8 (3.5-5.1) mmol/L Chloride 104 (98-107) mmol/L Carbon Dioxide 27 (22-30) mmol/L Anion Gap 7 mmol/L BUN 12 (7-17) mg/dL Creatinine 0.80 (0.52-1.04) mg/dL Est GFR (CKD-EPI)AfAm 81 (>60 ml/min/1.73 sqM) Est GFR (CKD-EPI)NonAf 70 (>60 ml/min/1.73 sqM) Glucose 132 H (74-99) mg/dL Calcium 9.5 (8.4-10.2) mg/dL Total Bilirubin 0.7 (0.2-1.3) mg/dL AST 45 H (14-36) U/L ALT 19 (4-34) U/L Alkaline Phosphatase 71 (38-126) U/L Troponin I (0.000-0.034) ng/mL NT-Pro-B Natriuret Pep pg/mL Total Protein 6.7 (6.3-8.2) g/dL Albumin 3.5 (3.5-5.0) g/dL 06/11/22 06/11/22 Range/Units 21:40 21:40 WBC (3.8-10.6) k/uL RBC (3.80-5.40) m/uL Hgb (11.4-16.0) gm/dL Hct (34.0-46.0) % MCV (80.0-100.0) fL MCH (25.0-35.0) pg MCHC (31.0-37.0) g/dL RDW (11.5-15.5) % Plt Count (150-450) k/uL MPV Neutrophils % % Lymphocytes % % Monocytes % % Eosinophils % % Basophils % % Neutrophils # (1.3-7.7) k/uL Lymphocytes # (1.0-4.8) k/uL Monocytes # (0-1.0) k/uL Eosinophils # (0-0.7) k/uL Basophils # (0-0.2) k/uL PT (9.0-12.0) sec INR (<1.2) APTT (22.0-30.0) sec Sodium (137-145) mmol/L Potassium (3.5-5.1) mmol/L Chloride (98-107) mmol/L Carbon Dioxide (22-30) mmol/L Anion Gap mmol/L BUN (7-17) mg/dL Creatinine (0.52-1.04) mg/dL Est GFR (CKD-EPI)AfAm (>60 ml/min/1.73 sqM) Est GFR (CKD-EPI)NonAf (>60 ml/min/1.73 sqM) Glucose (74-99) mg/dL Calcium (8.4-10.2) mg/dL Total Bilirubin (0.2-1.3) mg/dL AST (14-36) U/L ALT (4-34) U/L Alkaline Phosphatase (38-126) U/L Troponin I <0.012 (0.000-0.034) ng/mL NT-Pro-B Natriuret Pep 132 pg/mL Total Protein (6.3-8.2) g/dL Albumin (3.5-5.0) g/dL Disposition Clinical Impression: Pleural effusion, Hypoxia Disposition: ADMITTED IP TO THIS HOSP Condition: Stable Is patient prescribed a controlled substance at d/c from ED?: No Time of Disposition: 22:30 Decision to Admit Reason: Admit from EC Decision Date: 06/11/22 Decision Time: 22:30
[2022-06-11] MEDS ORDERED: NALOXONE 0.4 MG/ML 1 ML VIAL IV PRN (22:46)
--- NOTE | 2022-06-12 12:20 | P.HPIM ---
History of Present Illness H&P Date: 06/12/22 Chief Complaint: Worsening dyspnea, hypoxemia This is a pleasant 81-year-old female with past medical history of Graves' disease, diabetes mellitus II, recently hospitalized with compressive atelectasis, bilateral upper lung nodules, right pleural effusion requiring thoracentesis on 06/04/2022 with 1500 L drained; cytology results now back, reporting positive for metastatic adenocarcinoma, immunostaining results indicating breast is the most likely primary site of origin, possible-less likely primary lung origin, presented to the ER with worsening exertional dyspnea. Daughter reports O2 sat decreased to low 80s at home. Denies any chest pain, palpitations. Denies any fevers or chills. Denies any nausea vomiting diarrhea. Denies any abdominal pain. Chest x-ray reporting prominent interval worsening in the lung inflammation pattern; increased right pleural effusion, now occupying 75% of the right hemothorax, complete atelectasis of the right middle lobe and right lower lobe and components of the right, on the left small pleural effusion present, partial airlessness of the left lobe, mediastinum midline, no pneumothorax, no acute skeletal or soft tissue findings. On admission, O2 sat 92% on room air, currently requiring 2 L nasal cannula to maintain O2 sats in the 90s. Mild tachycardia. Review of Systems ROS Statement: Those systems with pertinent positive or pertinent negative responses have been documented in the HPI. ROS Other: All systems not noted in ROS Statement are negative. Past Medical History Past Medical History: Diabetes Mellitus, Thyroid Disorder Additional Past Medical History / Comment(s): Type 2 diabetes, graves disease History of Any Multi-Drug Resistant Organisms: None Reported Past Surgical History: Cholecystectomy, Hysterectomy Additional Past Surgical History / Comment(s): cataract surgery Past Anesthesia/Blood Transfusion Reactions: No Reported Reaction Past Psychological History: No Psychological Hx Reported Smoking Status: Never smoker Past Alcohol Use History: None Reported Past Drug Use History: None Reported Medications and Allergies Home Medications Medication Instructions Recorded Confirmed Type Atorvastatin [Lipitor] 10 mg PO DAILY 06/03/22 06/12/22 History Calcium Carbonate [Tums] 1,000 mg PO TID PRN 06/03/22 06/12/22 History Famotidine/Ca Carb/Mag Hydrox 1 tab PO TID PRN 06/03/22 06/12/22 History [Pepcid Complete Tablet Chew] Levothyroxine Sodium [Synthroid] 88 mcg PO DAILY 06/03/22 06/12/22 History glipiZIDE [glipiZIDE ER] 2.5 mg PO DAILY 06/03/22 06/12/22 History sitaGLIPtin PHOS/metFORMIN HCL 1 tab PO BID 06/03/22 06/12/22 History [Janumet 50-500 mg Tablet] Acetaminophen Tab [Tylenol] 500 mg PO Q6HR PRN tab 06/05/22 06/12/22 Rx Allergies Allergy/AdvReac Type Severity Reaction Status Date / Time Sulfa (Sulfonamide Allergy Rash/Hives Verified 06/12/22 07:02 Antibiotics) Fish Containing Products AdvReac Nausea & Verified 06/12/22 07:02 [Fish] Vomiting Physical Exam Vitals: Vital Signs Temp Pulse Resp BP Pulse Ox 06/12/22 09:11 97 F L 96 19 159/97 98 06/12/22 00:00 103 H 20 132/93 94 L 06/11/22 21:49 18 06/11/22 20:45 98 F 106 H 20 152/84 92 L Intake and Output 06/11/22 06/12/22 06/12/22 22:59 06:59 14:59 Other: Weight 89.358 kg PHYSICAL EXAM: VITAL SIGNS: As above GENERAL: Sitting up on stretcher, no acute distress HEENT: Conjunctivae normal. eyes normal. NECK: Supple, No JVD. No thyroid enlargement. CARDIOVASCULAR: S1, S2 regular. Mild tachycardia. Systolic murmur RESPIRATION: Breath sounds diminished in the bases, greatest on the right. No rhonchi or crackles. ABDOMEN: Soft, nontender. No guarding. no masses palpable. No ascites, No hepatosplenomegaly.Bowel sounds heard. LEGS: No edema. no swelling, no cyanosis , clubbing or calf tenderness PSYCHIATRY: Alert and oriented X3, mood and affect normal. NERVOUS SYSTEM: Cranial N 2-12 grossly normal. No focal deficits. Strength and sensation grossly intact. Skin: Warm and dry, no rash Results CBC & Chem 7: 06/11/22 21:40 06/11/22 21:40 Labs: Abnormal Lab Results - Last 24 Hours (Table) 06/11/22 06/11/22 Range/Units 21:40 21:40 WBC 10.7 H (3.8-10.6) k/uL Neutrophils # 8.2 H (1.3-7.7) k/uL Glucose 132 H (74-99) mg/dL AST 45 H (14-36) U/L Assessment and Plan Assessment: Recurrent Right pleural effusion with compressive atelectasis, recent thoracocentesis 06/04/2022. New diagnoses -Cytology recently returned, reporting metastatic adenocarcinoma, immunostaining results indicating breast is the most likely primary site of origin, possible-less likely primary lung origin. Acute hypoxic respiratory failure secondary to the above Bilateral upper lung nodule, on the right 1.2 cm and on the left 1.0 cm, history of type 2 diabetes mellitus hypothyroidism Nonsmoker, lifelong Hyperlipidemia Plan: Continue on current medication regime ,monitoring and symptomatic treatment. Cytology results recently returned, oncology consulted. Pulmonary consult in place with recommendations pending. Prognosis guarded given multiple complex medical issues. The impression and plan of care has been dictated as directed. : I performed a history and examination of this patient, discussed the same with the dictator. I agree with the dictator's note ,documented as a scribe. Any additional findings or plans will be noted.
[2022-06-12] MEDS ORDERED: DEXTROSE 50% SYRINGE 50 ML IVP PRN ×2 (13:12)
[2022-06-12] MEDS ORDERED: INSULIN ASPART (NovoLOG) 100 UNIT/ML VIAL SQ SCH (13:15)
[2022-06-12] MEDS ORDERED: SODIUM CHLORIDE 0.9% 1,000 ML IV SCH (13:15)
[2022-06-12] MEDS: PANTOPRAZOLE 40 MG/10 ML VIAL IVP SCH (13:34)
[2022-06-12] MEDS: INSULIN ASPART (NovoLOG) 100 UNIT/ML VIAL SQ SCH ×2 (13:35→20:29)
[2022-06-12 13:36] LABS: Glucose,Whole Blood 102 mg/dL (70-110)
--- NOTE | 2022-06-12 15:00 | P.CNPUL ---
History of Present Illness Consult date: 06/12/22 Reason for consult: pleural effusion History of present illness: This is a 81-year-old female patient with metastatic adenocarcinoma. The patien froylan presented to the hospital on 06/03/2022 and the patient had a large right- sided pleural effusion. The CAT scan of the chest at that time showed a large right-sided pleural effusion and the patient also had no blurred density in the right upper lobe measuring 1.2 cm and another nodule in the left upper lobe measuring 1 cm. The patient underwent a diagnostic and therapeutic thoracentesis and she felt better. The fluid cytology was positive for malignancy. She was discharged home to be readmitted with worsening shortness of breath and there is again recurrent right-sided pleural effusion with a week of discharge. She is currently on oxygen at 3 L/m nasal cannula. No chest pain. No pleurisy. No hemoptysis. Normal coagulation profile. In terms of cancer screening, the patient has done colonoscopy and EGD many years back. She has also gone previous mammograms. The results are not available to me at this point in time. She'll be seen in oncology regarding her malignancy. My un derstanding that she has not done routine mammograms. No nausea. No emesis. No melena. No bright red blood per rectum. Hemoglobin is stable at 14.1. This Review of Systems Constitutional: Reports weakness, Reports weight loss Eyes: denies as per HPI, denies blurred vision, denies bulging eye, denies decreased vision, denies diplopia, denies discharge, denies dry eye, denies irritation, denies itching, denies pain, denies photophobia, denies loss of peripheral vision, denies loss of vision, denies tunnel vision/blind spots Ears: deny: decreased hearing, ear discharge, earache, tinnitus Ears, nose, mouth and throat: Reports as per HPI Breasts: absent: as per HPI, change in shape, gynecomastia, masses, nipple discharge, pain, skin changes, swelling Cardiovascular: Reports decreased exercise tolerance, Reports dyspnea on exertion Respiratory: Reports dyspnea Gastrointestinal: Reports as per HPI Genitourinary: Reports as per HPI Menstruation: Reports as per HPI Musculoskeletal: absent: ankle pain, ankle stiffness, ankle swelling Integumentary: Reports as per HPI Neurological: Reports as per HPI Psychiatric: Reports as per HPI Endocrine: Reports as per HPI Hematologic/Lymphatic: Reports as per HPI Allergic/Immunologic: Reports as per HPI Past Medical History Past Medical History: Diabetes Mellitus, Thyroid Disorder Additional Past Medical History / Comment(s): Type 2 diabetes, graves disease History of Any Multi-Drug Resistant Organisms: None Reported Past Surgical History: Cholecystectomy, Hysterectomy Additional Past Surgical History / Comment(s): cataract surgery Past Anesthesia/Blood Transfusion Reactions: No Reported Reaction Past Psychological History: No Psychological Hx Reported Smoking Status: Never smoker Past Alcohol Use History: None Reported Past Drug Use History: None Reported Medications and Allergies Home Medications Medication Instructions Recorded Confirmed Type Atorvastatin [Lipitor] 10 mg PO DAILY 06/03/22 06/12/22 History Calcium Carbonate [Tums] 1,000 mg PO TID PRN 06/03/22 06/12/22 History Famotidine/Ca Carb/Mag Hydrox 1 tab PO TID PRN 06/03/22 06/12/22 History [Pepcid Complete Tablet Chew] Levothyroxine Sodium [Synthroid] 88 mcg PO DAILY 06/03/22 06/12/22 History glipiZIDE [glipiZIDE ER] 2.5 mg PO DAILY 06/03/22 06/12/22 History sitaGLIPtin PHOS/metFORMIN HCL 1 tab PO BID 06/03/22 06/12/22 History [Janumet 50-500 mg Tablet] Acetaminophen Tab [Tylenol] 500 mg PO Q6HR PRN tab 06/05/22 06/12/22 Rx Allergies Allergy/AdvReac Type Severity Reaction Status Date / Time Sulfa (Sulfonamide Allergy Rash/Hives Verified 06/12/22 07:02 Antibiotics) Fish Containing Products AdvReac Nausea & Verified 06/12/22 07:02 [Fish] Vomiting Physical Exam Vitals: Vital Signs Temp Pulse Pulse Resp BP BP Pulse Ox 06/12/22 13:30 98.1 F 98 16 122/80 97 06/12/22 12:56 98.7 F 101 H 22 130/56 96 06/12/22 09:11 97 F L 96 19 159/97 98 06/12/22 00:00 103 H 20 132/93 94 L 06/11/22 21:49 18 06/11/22 20:45 98 F 106 H 20 152/84 92 L Intake and Output 06/11/22 06/12/22 06/12/22 22:59 06:59 14:59 Other: Weight 89.358 kg PHYSICAL EXAM: VITAL SIGNS: As above, calm and comfortable currently on 3 L of oxygen by nasal cannula GENERAL: Sitting up on stretcher, no acute distress HEENT: Conjunctivae normal. eyes normal. NECK: Supple, No JVD. No thyroid enlargement. CARDIOVASCULAR: S1, S2 regular. Mild tachycardia. Systolic murmur RESPIRATION: Breath sounds diminished in the bases, greatest on the right. No rhonchi or crackles. The patient also percussion and marked diminished breath sounds/absent breath sounds on the right. ABDOMEN: Soft, nontender. No guarding. no masses palpable. No ascites, No hepatosplenomegaly.Bowel sounds heard. LEGS: No edema. no swelling, no cyanosis , clubbing or calf tenderness PSYCHIATRY: Alert and oriented X3, mood and affect normal. NERVOUS SYSTEM: Cranial N 2-12 grossly normal. No focal deficits. Strength and sensation grossly intact. Skin: Warm and dry, no rash Results - Laboratory Findings CBC and BMP: 06/11/22 21:40 06/11/22 21:40 PT/INR, D-dimer PT 9.6 sec (9.0-12.0) 06/11/22 21:40 INR 0.9 (<1.2) 06/11/22 21:40 Abnormal lab findings: Abnormal Labs 06/11/22 06/11/22 21:40 21:40 WBC 10.7 H Neutrophils # 8.2 H Glucose 132 H AST 45 H - Diagnostic Findings Chest x-ray: image reviewed Assessment and Plan Plan: Metastatic adenocarcinoma, currently under investigation. Exact source is not clear. The patient has tiny pulmonary nodules less than 1 cm one in the right upper lobe another 1 left upper lobe. The patient also has a large right-sided pleural effusion, malignant based on the previous thoracentesis Recurrent right-sided pleural effusion Shortness of breath secondary to above Acute hypoxic respiratory failure secondary to above Diabetes mellitus Hypothyroidism Previous history of Graves' disease Plan Will complete the oncology workup by obtaining CAT scan of the abdomen and pelvis. She may also be debilitation PET/CT. Based on the rapid the exhalation of the right-sided pleural effusion, I would recommend a Pleurx catheter insertion which would allow the patient to give herself symptomatic relief with outpatient drainage procedures. Consult oncology May need tumor markers Resume all medications including thyroid pills, Lipitor and Januvia and metformin We'll continue to follow.
--- NOTE | 2022-06-12 16:05 | USB ---
Reason for Exam: Clinical finding. Risk Values: Felipa 5 year model risk: 1.1%. NCI Lifetime model risk: 1.7%. Technique: Method: Whole Breast Handheld. Findings: The whole breast of the left breast, the area of palpable concern of the left breast, the axilla of the left breast and the retroareolar of the left breast were scanned. A complete US of all four quadrants of the left breast and retro-areolar region were reviewed. Additional imaging of the left axilla was performed. There is a irregular hypoechoic mass within the left breast at 7:00 7 cm from the nipple corresponding to palpable abnormality measuring 4.1 x 3.0 x 2.7 cm. This is taller than wide with peripheral color flow identified. Posterior acoustic shadowing demonstrated. Irregular spiculated margins demonstrated. Additionally there is an enlarged left axial lymph node measuring 1.4 cm short axis with thickened cortex measuring up to 6 mm. Overall Assessment: Highly suggestive of malignancy, BI-RAD 5 Management: Diagnostic Mammogram of both breasts. Ultrasound Core Biopsy of the left breast. A clinical breast exam by your physician is recommended on an annual basis and results should be correlated with mammographic findings. This exam should not preclude additional follow-up of suspicious palpable abnormalities. Results were given to the patient verbally at the time of exam. Electronically signed and approved by: Francisco Dorman D.O.
[2022-06-12] MEDS: IOPAMIDOL CONTRAST (ORAL USE) VIAL PO PRN ×2 (16:06→17:07)
--- NOTE | 2022-06-12 16:33 | P.GSCN ---
History of Present Illness Consult date: 06/12/22 Reason for Consult: Recurrent right-sided malignant pleural effusion Requesting physician: Adrian Bonilla History of present illness: This is an 81-year-old female patient who follows on an outpatient basis with Dr. Dakota Sutton for her primary care service. She has a past medical history significant for hyperlipidemia, history of Graves' disease, hypothyroidism, right pleural effusion, status post right thoracentesis on 06/04/2022 with 1.5 L of fluid drained and pleural fluid cytology showing positive for metastatic adenocarcinoma, with possibility of breast or lung primary. The patient also reports she is a lifetime nonsmoker. Recently, the patient has had complaints of progressive shortness of breath with and without activity. She denies any recent fever, chills, nausea, vomiting, hemoptysis, hematemesis, trauma, headache, constipation, diarrhea, chest pain, lightheadedness, presyncope or syncope. She was recently admitted to the hospital on 06/03/2022 for similar complaints of shortness of breath and was found to have a large right-sided pleural effusion and subsequently underwent a right-sided thoracentesis with 1.5 L of fluid drained with cytology showing positive for malignancy. Post tho racentesis the patient admits to feeling better with her shortness of breath. She denies using oxygen at home and is currently on 2 L nasal cannula with oxygen saturations 97%. The patient presented to the emergency department here at [facility] last evening due to her complaints of progressive shortness of breath. A chest x-ray was completed which showed a recurrent large right pleural effusion. Initial laboratory results showed a WBC count of 10.7, hemoglobin 14.1, hematocrit 42.3, platelets 377, INR 0.9, PT 9.6, PTT 23.6, sodium 138, potassium 4.8, chloride 104, BUN 12, creatinine 0.80, glucose 132, calcium 9.5, AST 45, ALT 19, troponin less than 0.012, proBNP 132 and albumin 3.5. During her stay on 06/03/[address] chest anginal for PE protocol was completed which demonstrated no acute pulmonary embolism, moderate to large right pleural effusion, and nodular density peripheral right upper lung field with eccentric calcification and an additional granulomas left upper lobe. Due to her cytology coming back positive for metastatic adenocarcinoma with possibility of breast and ultrasound of her breast was completed today 06/12/2022 which showed an overall assessment highly suggestive of malignancy. Subsequently, due to her recurrent right pleural effusion a consult was placed to Dr. Kelsy Pat from cardiothoracic surgery for further evaluation and treat ment recommendations including placement of Pleurx catheter. Review of Systems A 14 point review of systems was completed and was negative except as mentioned in the HPI. Past Medical History Past Medical History: Diabetes Mellitus, GERD/Reflux, Hyperlipidemia, Thyroid Disorder Additional Past Medical History / Comment(s): Type 2 diabetes, graves disease History of Any Multi-Drug Resistant Organisms: None Reported Past Surgical History: Cholecystectomy, Hysterectomy Additional Past Surgical History / Comment(s): cataract surgery, both eyes Past Anesthesia/Blood Transfusion Reactions: No Reported Reaction Past Psychological History: No Psychological Hx Reported Smoking Status: Never smoker Past Alcohol Use History: None Reported Past Drug Use History: None Reported - Past Family History Mother Additional Family Medical History / Comment(s): History of cirrhosis of the liver Father Additional Family Medical History / Comment(s): Abdominal aortic aneurysm, smoker, at age 93. Medications and Allergies Home Medications Medication Instructions Recorded Confirmed Type Atorvastatin [Lipitor] 10 mg PO DAILY 06/03/22 06/12/22 History Calcium Carbonate [Tums] 1,000 mg PO TID PRN 06/03/22 06/12/22 History Famotidine/Ca Carb/Mag Hydrox 1 tab PO TID PRN 06/03/22 06/12/22 History [Pepcid Complete Tablet Chew] Levothyroxine Sodium [Synthroid] 88 mcg PO DAILY 06/03/22 06/12/22 History glipiZIDE [glipiZIDE ER] 2.5 mg PO DAILY 06/03/22 06/12/22 History sitaGLIPtin PHOS/metFORMIN HCL 1 tab PO BID 06/03/22 06/12/22 History [Janumet 50-500 mg Tablet] Acetaminophen Tab [Tylenol] 500 mg PO Q6HR PRN tab 06/05/22 06/12/22 Rx Allergies Allergy/AdvReac Type Severity Reaction Status Date / Time Sulfa (Sulfonamide Allergy Rash/Hives Verified 06/12/22 07:02 Antibiotics) Fish Containing Products AdvReac Nausea & Verified 06/12/22 07:02 [Fish] Vomiting Surgical - Exam Vital Signs Temp Pulse Resp BP Pulse Ox 98 F 106 H 20 152/84 92 L 06/11/22 20:45 06/11/22 20:45 06/11/22 20:45 06/11/22 20:45 06/11/22 20:45 - General well developed, well nourished, no distress, no pain, obese - Eyes PERRL, normal ocular movement, no pale, no icteric - ENT normal pinna, normal nares, normal mucosa, no hearing loss, no congestion, poor longterm - Neck Neck is supple, no lymphadenopathy. no bruits, trachea midline, no venous distension - Respiratory Lung sounds diminished to her right side, essentially clear to her left side, no wheezes, rhonchi or crackles. Respirations are symmetrical and nonlabored. Oxygen saturation is 97% on 2 L nasal cannula. - Cardiovascular Regular rhythm and rate. S1 and S2 present, negative for S3 or gallop. Soft systolic murmur heard best her right sternal border. Peripheral pulses palpable. No edema present. - Abdomen Abdomen is soft, nontender and nondistended. Active bowel sounds present in all 4 abdominal quadrants. No guarding or rigidity. No organomegaly appreciated. - Genitourinary Deferred - Rectum Deferred - Integumentary Skin is warm and dry. No clubbing or cyanosis is present. no rash, no growths, no abnormal pigmentation - Neurologic No focal deficits. normal coordination, normal sensation - Musculoskeletal normal gait - Psychiatric oriented to time, oriented to person, oriented to place, speech is normal, memory intact Results - Labs 06/11/22 21:40 06/11/22 21:40 Abnormal Lab Results - Last 24 Hours (Table) 06/11/22 06/11/22 Range/Units 21:40 21:40 WBC 10.7 H (3.8-10.6) k/uL Neutrophils # 8.2 H (1.3-7.7) k/uL Glucose 132 H (74-99) mg/dL AST 45 H (14-36) U/L Diabetes panel 06/11/22 Range/Units 21:40 Sodium 138 (137-145) mmol/L Potassium 4.8 (3.5-5.1) mmol/L Chloride 104 (98-107) mmol/L Carbon Dioxide 27 (22-30) mmol/L BUN 12 (7-17) mg/dL Creatinine 0.80 (0.52-1.04) mg/dL Glucose 132 H (74-99) mg/dL Calcium 9.5 (8.4-10.2) mg/dL AST 45 H (14-36) U/L ALT 19 (4-34) U/L Alkaline Phosphatase 71 (38-126) U/L Total Protein 6.7 (6.3-8.2) g/dL Albumin 3.5 (3.5-5.0) g/dL Calcium panel 06/11/22 Range/Units 21:40 Calcium 9.5 (8.4-10.2) mg/dL Albumin 3.5 (3.5-5.0) g/dL Pituitary panel 06/11/22 Range/Units 21:40 Sodium 138 (137-145) mmol/L Potassium 4.8 (3.5-5.1) mmol/L Chloride 104 (98-107) mmol/L Carbon Dioxide 27 (22-30) mmol/L BUN 12 (7-17) mg/dL Creatinine 0.80 (0.52-1.04) mg/dL Glucose 132 H (74-99) mg/dL Calcium 9.5 (8.4-10.2) mg/dL Adrenal panel 06/11/22 Range/Units 21:40 Sodium 138 (137-145) mmol/L Potassium 4.8 (3.5-5.1) mmol/L Chloride 104 (98-107) mmol/L Carbon Dioxide 27 (22-30) mmol/L BUN 12 (7-17) mg/dL Creatinine 0.80 (0.52-1.04) mg/dL Glucose 132 H (74-99) mg/dL Calcium 9.5 (8.4-10.2) mg/dL Total Bilirubin 0.7 (0.2-1.3) mg/dL AST 45 H (14-36) U/L ALT 19 (4-34) U/L Alkaline Phosphatase 71 (38-126) U/L Total Protein 6.7 (6.3-8.2) g/dL Albumin 3.5 (3.5-5.0) g/dL - Imaging Chest x-ray: report reviewed, image reviewed Additional studies: Results of ultrasound the breast reviewed. Assessment and Plan Assessment: 1. Recurrent right sided pleural effusion 2. Acute hypoxic respiratory failure, shortness of breath, secondary to above 3. Metastatic adenocarcinoma, currently under investigation, recently found to have tiny pulmonary nodules less than 1 cm on the right and another 1 cm left upper lobe nodule, ultrasound of the breast completed today 06/12/2022 showed overall assessment highly suggestive of malignancy 4. Diabetes mellitus type 2 5. History of Graves' disease 6. Hypothyroid, currently on Synthroid 7. Lifetime nonsmoker Plan: The patient was seen and examined at her bedside on the fourth [facility] medical surgical unit. Her chart and diagnostics were reviewed. Her case was discussed in detail with Dr. Pat from cardiothoracic surgery. Treatment options including Pleurx catheter placement were discussed with the patient and the patient's daughter present at her bedside. Risks and benefits of Pleurx catheter were discussed. Knowing and understanding the risks the patient would like to proceed with a Pleurx catheter placement. Timing on Pleurx catheter placement is to follow, if the patient's symptoms were to worsen she may benefit from a right-sided thoracentesis for symptom management. Recommend use of incentive spirometry 10 times every hour while awake. Continue to follow daily chest x-rays. More recommendations to follow based on patient's clinical course. Thank you Dr. Bonilla for this consult and we look forward to working with you in the care of this patient. I have personally seen and examined the patient, performed the documentation and the assessment and plan as written. 30 minutes spent on the visit . Ronald PEREA
[2022-06-12 17:03] LABS: Glucose,Whole Blood 104 mg/dL (70-110)
--- NOTE | 2022-06-12 19:00 | P.CONS ---
History of Present Illness - Reason for Consult Consult date: 06/12/22 adenocarcinoma Requesting physician: Angely Gaines - Chief Complaint SOB and weakness - History of Present Illness This is a pleasant 81-year-old female with past medical history of Graves' disease, diabetes mellitus II, recently hospitalized with compressive atelectasi s of rt lung, bilateral upper lung nodules, right pleural effusion which required thoracentesis on 06/04/2022 with 1500 L drained. Cytology results returned on 06/11/21, which reported positive for metastatic adenocarcinoma, immunostaining results indicating breast is the most likely primary site of o rigin, with less likely primary lung origin. Patient presented to the ER with worsening exertional dyspnea and progressive fatigue and weakness over the last 3-4 weeks. Daughter reports O2 sat low 80s at home. Chest x-ray shows worsening of right pleural effusion and small left pleural effusion, was 79% of the right hemithorax being occupied. Patent reports breathing was better for a brief perio d of time after last thoracentesis but, SOB has returned, she is mildly SOB at rest. O2 sat is 97% on 2 L nasal cannula. Patient reports no history of cancer. Reports last mammogram was over 5 years ago in [place]. States her rt breast has always been the breast that required additional studies, her left breast is the one the "hurts". Patient denies chest pain, dizziness, leg swelling, nausea, vomiting, diarrhea, fever, and chills. Denies any constitutional symptoms of unintentional weight loss or night sweats. Review of Systems 10 point ROS is negative except as stated in HPI Past Medical History Past Medical History: Diabetes Mellitus, Thyroid Disorder Additional Past Medical History / Comment(s): Type 2 diabetes, graves disease History of Any Multi-Drug Resistant Organisms: None Reported Past Surgical History: Cholecystectomy, Hysterectomy Additional Past Surgical History / Comment(s): cataract surgery Past Anesthesia/Blood Transfusion Reactions: No Reported Reaction Past Psychological History: No Psychological Hx Reported Smoking Status: Never smoker Past Alcohol Use History: None Reported Past Drug Use History: None Reported - Past Family History Father Family Medical History: No Reported History Mother Additional Family Medical History / Comment(s): History of cirrhosis of the liver Medications and Allergies Home Medications Medication Instructions Recorded Confirmed Type Atorvastatin [Lipitor] 10 mg PO DAILY 06/03/22 06/12/22 History Calcium Carbonate [Tums] 1,000 mg PO TID PRN 06/03/22 06/12/22 History Famotidine/Ca Carb/Mag Hydrox 1 tab PO TID PRN 06/03/22 06/12/22 History [Pepcid Complete Tablet Chew] Levothyroxine Sodium [Synthroid] 88 mcg PO DAILY 06/03/22 06/12/22 History glipiZIDE [glipiZIDE ER] 2.5 mg PO DAILY 06/03/22 06/12/22 History sitaGLIPtin PHOS/metFORMIN HCL 1 tab PO BID 06/03/22 06/12/22 History [Janumet 50-500 mg Tablet] Acetaminophen Tab [Tylenol] 500 mg PO Q6HR PRN tab 06/05/22 06/12/22 Rx Allergies Allergy/AdvReac Type Severity Reaction Status Date / Time Sulfa (Sulfonamide Allergy Rash/Hives Verified 06/12/22 07:02 Antibiotics) Fish Containing Products AdvReac Nausea & Verified 06/12/22 07:02 [Fish] Vomiting Physical Exam Vitals: Vital Signs Temp Pulse Pulse Resp BP BP Pulse Ox 06/12/22 13:30 98.1 F 98 16 122/80 97 06/12/22 12:56 98.7 F 101 H 22 130/56 96 06/12/22 09:11 97 F L 96 19 159/97 98 06/12/22 00:00 103 H 20 132/93 94 L 06/11/22 21:49 18 06/11/22 20:45 98 F 106 H 20 152/84 92 L - Constitutional General appearance: average body habitus, no acute distress - EENT Eyes: anicteric sclerae, EOMI ENT: hearing grossly normal - Neck Neck: no lymphadenopathy, normal ROM - Respiratory Respiratory: right: diminished - Cardiovascular Rhythm: regular Heart sounds: normal: S1, S2 Abnormal Heart Sounds: no systolic murmur, no diastolic murmur, no rub, no S3 Gallop, no S4 Gallop, no click, no other - Gastrointestinal General gastrointestinal: soft, no tenderness - Integumentary Integumentary: normal - Neurologic grossly Neurologic: CNII-XII intact - Musculoskeletal Musculoskeletal: strength equal bilaterally - Psychiatric Psychiatric: A&O x's 3, appropriate affect, intact judgment & insight Bilateral breast exam, no unusual findings of the right, lt breast 3cm tender mass/thickened fibrous tissue palpated at 7 oclock, not fixed to chest wall, no axillary LN palpated Results CBC & Chem 7: 06/11/22 21:40 06/11/22 21:40 Labs: Abnormal Lab Results - Last 24 Hours (Table) 06/11/22 06/11/22 Range/Units 21:40 21:40 WBC 10.7 H (3.8-10.6) k/uL Neutrophils # 8.2 H (1.3-7.7) k/uL Glucose 132 H (74-99) mg/dL AST 45 H (14-36) U/L Chest x-ray: report reviewed Assessment and Plan (1) Adenocarcinoma Current Visit: Yes Status: Acute Priority: High Code(s): C80.1 - MALIGNANT (PRIMARY) NEOPLASM, UNSPECIFIED SNOMED Code(s): 693604035 (2) Shortness of breath Current Visit: Yes Status: Acute Priority: High Code(s): R06.02 - SHORTNESS OF BREATH SNOMED Code(s): 057072969 Plan: Adenocarcinoma: -Recently hospitalized with compressive atelectasis, bilateral upper lung nodules, right pleural effusion which required thoracentesis on 06/04/2022 with 1500 L drained. Cytology results returned on 06/11/21, positive for metastatic adenocarcinoma, immunostaining results indicating breast is the most likely primary site of origin, with less likely primary lung origin. -Reviewed that this is a malignant effusion and will continue to recur until the underlying cause is treated. -Chest x-ray showed worsening of right pleural effusion with 75% of right hemithorax been occupied. Pulmonary recommending right sided Pleurx. Agree with plan. -CT abdomen and pelvis with contrast ordered, if there are lesions amendable for biopsy, tissue biopsy will be requested for further testing, and additional studies including NGS and PDL 1, for additional treatment options -Left breast/axilla ultrasound ordered to further examine mass palpated in the left breast -Patient and daughter were updated on cytology results and recommended course of action, as stated above. Both are agreeable with plan. All questions and concerns answered to the best of my ability with the known information. We'll continue to update patient on findings as they become available.
--- NOTE | 2022-06-12 19:30 | CT ---
EXAMINATION TYPE: CT ChestAbdPelvis w con DATE OF EXAM: 06/12/2022 COMPARISON: Chest CT scan 06/03/2022 HISTORY: SOB CT DLP: 1592.9 mGycm Automated exposure control for dose reduction was used. CONTRAST: Performed with IV Contrast, patient injected with 100 mL of Isovue 370. Images obtained from the thoracic inlet to the floor of the pelvis with the IV contrast. There is a very large right pleural effusion and almost complete opacification of the right hemithora x with fluid. There is extensive consolidation and atelectasis in the right lung. There are a few par atracheal lymph nodes that measure up to 2 cm. There are no hilar masses. The left lung shows minimal subsegmental atelectasis at the lung base. Liver and spleen are intact. The stomach is intact. No pancreatic mass. There are clips from cholecys tectomy. The bile ducts are not dilated. There is no adrenal mass. Kidneys show satisfactory contrast opacification. No hydronephrosis. Delaye d images show normal renal excretion. No retroperitoneal adenopathy. Appendix is medial and appears n ormal. The bladder distends smoothly. No abdominal hernia. There are multiple sigmoid diverticula. No diverticulitis. There is midline fluid at the floor of the urinary bladder extending to the labia th at could be a cystocele. This measures 1.7 cm in width. There is no mesenteric edema. No ascites or free air. No sign of a bowel obstruction. The thoracic and lumbar vertebra appear intact with no compression fracture. There is a minimal L4-5 degenerative spondylolisthesis. The bony pelvis is intact. The hip joints are intact. Sacroiliac join ts are intact. IMPRESSION: Possible bladder cystocele. Correlation with the physical exam needed. Sigmoid diverticulosis without diverticulitis. Large right pleural effusion with extensive atelectasis and infiltrate right lung. Follow-up recommen ded. Hydrothorax similar to recent exam of 06/03/2022.
[2022-06-12] MEDS ORDERED: CALCIUM CARBONATE 500 MG CHEWABLE PO PRN (20:13)
[2022-06-12 20:17] LABS: Glucose,Whole Blood 198 mg/dL (70-110)
[2022-06-12] MEDS: ACETAMINOPHEN TAB 500 MG TAB PO PRN (20:32)
[2022-06-12] MEDS ORDERED: FAMOTIDINE 20 MG TAB PO PRN (21:00)
[2022-06-13] MEDS: INSULIN ASPART (NovoLOG) 100 UNIT/ML VIAL SQ SCH ×5 (01:41→20:44)
[2022-06-13 01:44] LABS: Glucose,Whole Blood 146 mg/dL (70-110)
[2022-06-13] MEDS: ACETAMINOPHEN TAB 500 MG TAB PO PRN ×2 (03:23→20:00)
[2022-06-13 06:25] LABS: Glucose,Whole Blood 115 mg/dL (70-110)
[2022-06-13] MEDS: LEVOTHYROXINE 88 MCG TAB PO SCH (06:36)
--- NOTE | 2022-06-13 06:46 | XR ---
EXAMINATION TYPE: XR chest 1V portable DATE OF EXAM: 06/13/2022 CLINICAL HISTORY: Recurrent right-sided pleural effusion. TECHNIQUE: Single AP portable upright view of the chest is obtained. COMPARISON: CT from one day earlier FINDINGS: Large right pleural effusion is redemonstrated. Left lung remains clear. Silhouetting of t he right heart border and hemidiaphragm again seen. Suspicious lesion left breast noted on recent CT axial image 34 inferior inner quadrant. Findings evaluated on same-day ultrasound. IMPRESSION: Stable large right pleural effusion with associated compressive atelectasis. Probable lef t breast neoplasm noted. No significant change from one day earlier.
[2022-06-13] MEDS: PANTOPRAZOLE 40 MG/10 ML VIAL IVP SCH (09:04)
[2022-06-13] MEDS: ATORVASTATIN 10 MG TAB PO SCH (09:04)
--- NOTE | 2022-06-13 09:58 | P.PN ---
Subjective Progress Note Date: 06/13/22 Principal diagnosis: This is an 81-year-old female patient who follows on an outpatient basis with Dr. Dakota Sutton for her primary care service. She has a past medical history significant for hyperlipidemia, history of Graves' disease, hypothyroidism, right pleural effusion, status post right thoracentesis on 06/04/2022 with 1.5 L of fluid drained and pleural fluid cytology showing positive for metastatic adenocarcinoma, with possibility of breast or lung primary. The patient also reports she is a lifetime nonsmoker. Recently, the patient has had complaints of progressive shortness of breath with and without activity. She denies any recent fever, chills, nausea, vomiting, hemoptysis, hematemesis, trauma, headache, constipation, diarrhea, chest pain, lightheadedness, presyncope or syncope. She was recently admitted to the hospital on 06/03/2022 for similar complaints of shortness of breath and was found to have a large right-sided pleural effusion and subsequently underwent a right-sided thoracentesis with 1.5 L of fluid drained with cytology showing positive for malignancy. Post thoracentesis the patient admits to feeling better with her shortness of breath. She denies using oxygen at home and is currently on 2 L nasal cannula with oxygen saturations 97%. The patient presented to the emergency department here at [facility] last evening due to her complaints of progressive shortness of breath. A chest x-ray was completed which showed a recurrent large right pleural effusion. Initial laboratory results showed a WBC count of 10.7, hemoglobin 14.1, hematocrit 42.3, platelets 377, INR 0.9, PT 9.6, PTT 23.6, sodium 138, potassium 4.8, chloride 104, BUN 12, creatinine 0.80, glucose 132, calcium 9.5, AST 45, ALT 19, troponin less than 0.012, proBNP 132 and albumin 3.5. During her stay on 06/03/[address] chest anginal for PE protocol was completed which demonstrated no acute pulmonary embolism, moderate to large right pleural effusion, and nodular density peripheral right upper lung field with eccentric calcification and an additional granulomas left upper lobe. Due to her cytology coming back positive for metastatic adenocarcinoma with possibility of breast and ultrasound of her breast was completed today 06/12/2022 which showed an overall assessment highly suggestive of malignancy. Subsequently, due to her recurrent right pleural effusion a consult was placed to Dr. Kelsy Pat from cardiothoracic surgery for further evaluation and treatment recommendations including placement of Pleurx catheter. The patient was seen and examined at her bedside on the fourth floor medical surgical unit with her daughter present at her bedside. Patient is currently sitting to the bedside edge, is awake, alert, oriented 3 and is in no acute distress. Oxygen saturations are 94% on 2 L nasal cannula and she is achieving 500 mL on her incentive spirometry with much encouragement. The patient reports that she did not sleep very well last night as she had to sit up in bed due to some episodes of shortness of breath if laying flat. Remote telemetry showing normal sinus rhythm heart rate 86 BPM. Chest x-ray was reviewed. She remains afebrile the last 24 hours. Preoperative teaching has been discussed with the patient and her daughter present at her bedside in regards to Pleurx catheter placement. Objective - Vital Signs Vital signs: Vital Signs Temp 97.9 F 06/13/22 07:30 Pulse 94 06/13/22 07:30 Resp 16 06/13/22 07:30 BP 126/83 06/13/22 07:30 Pulse Ox 93 L 06/13/22 07:30 FiO2 Intake & Output 06/12/22 06/13/22 06/13/22 18:59 06:59 18:59 Intake Total 1250 Balance 1250 Intake: Intake, IV Titration 300 Amount Sodium Chloride 0.9% 1, 300 000 ml @ 50 mls/hr IV . Q20H [facility] Rx#:[id number] Oral 950 Other: # Voids 2 0 - Exam CONSTITUTIONAL: Sitting up on a bedside edge on the medical surgical unit, appears comfortable, cooperative, no apparent acute distress. HEENT: Neck is supple, no JVD, no lymphadenopathy. RESPIRATORY: Lungs sounds essentially clear throughout, diminished to her right chest. Respirations are symmetrical and nonlabored. Currently on 2 L nasal cannula with oxygen saturation is 94%. Able to achieve 500 mL on her incentive spirometry. Strong cough. CARDIOVASCULAR: Regular rhythm and rate. S1 and S2 present, negative for S3, gallop or murmur. Remote telemetry showing normal sinus rhythm heart rate 86 BPM area GASTROINTESTINAL: Abdomen soft, nontender, nondistended. Active bowel sounds present 4 quadrants. Tolerating diet. Passing flatus. No guarding or ri gidity. GENITOURINARY: Continues to void. INTEGUMENTARY: Skin is warm and dry with no evidence of clubbing or cyanosis. MUSKULOSKELETAL: Able to move all extremities, strength equal bilaterally. PSYCHIATRIC: Alert and oriented to person place and time, appropriate affect, intact judgment and insight. - Allied health notes Allied health notes reviewed: nursing - Labs CBC & Chem 7: 06/11/22 21:40 06/11/22 21:40 Labs: Abnormal Lab Results - Last 24 Hours (Table) 06/11/22 06/12/22 06/13/22 Range/Units 21:40 20:14 01:40 POC Glucose (mg/dL) 198 H 146 H (70-110) mg/dL Hemoglobin A1c 6.4 H (0.0-6.0) % 06/13/22 Range/Units 06:23 POC Glucose (mg/dL) 115 H (70-110) mg/dL Hemoglobin A1c (0.0-6.0) % - Imaging and Cardiology Chest x-ray: report reviewed, image reviewed Assessment and Plan Assessment: 1. Recurrent right sided pleural effusion 2. Acute hypoxic respiratory failure, shortness of breath, secondary to above 3. Metastatic adenocarcinoma, currently under investigation, recently found to have tiny pulmonary nodules less than 1 cm on the right and another 1 cm left upper lobe nodule, ultrasound of the breast completed today 06/12/2022 showed overall assessment highly suggestive of malignancy 4. Diabetes mellitus type 2 5. History of Graves' disease 6. Hypothyroid, currently on Synthroid 7. Lifetime nonsmoker Plan: 1. Preoperative teaching reinforced with the patient and her daughter present at her bedside in regards to the Pleurx catheter. Tentative plan for right- sided Pleurx catheter placement on 06/25/2022. If the patient's symptoms were to worsen, patient may benefit from a right-sided thoracentesis for symptom management. 2. Continue to monitor daily chest x-rays. 3. Medical management other comorbidities per primary care and oncology services. 4. Encourage use of incentive spirometry 10 times every hour while awake. 5. More recommendations to follow based on patient's clinical course. Time with Patient: Greater than 30
[2022-06-13 11:47] LABS: Glucose,Whole Blood 168 mg/dL (70-110)
--- NOTE | 2022-06-13 13:40 | P.PN ---
Subjective Progress Note Date: 06/13/22 This is a 81-year-old female patient with metastatic adenocarcinoma. The patient presented to the hospital on 06/03/2022 and the patient had a large right-sided pleural effusion. The CAT scan of the chest at that time showed a large right-sided pleural effusion and the patient also had no blurred density in the right upper lobe measuring 1.2 cm and another nodule in the left upper lobe measuring 1 cm. The patient underwent a diagnostic and therapeutic thoracentesis and she felt better. The fluid cytology was positive for malignancy. She was discharged home to be readmitted with worsening shortness of breath and there is again recurrent right-sided pleural effusion with a week of discharge. She is currently on oxygen at 3 L/m nasal cannula. No chest pain. No pleurisy. No hemoptysis. Normal coagulation profile. In terms of cancer screening, the patient has done colonoscopy and EGD many years back. She has also gone previous mammograms. The results are not available to me at this point in time. She'll be seen in oncology regarding her malignancy. My understanding that she has not done routine mammograms. No nausea. No emesis. No melena. No bright red blood per rectum. Hemoglobin is stable at 14.1. This On today's evaluation of 06/13/2022, the patient is doing essentially stable and she is still short of breath and the patient is awaiting a Pleurx catheter insertion and the tentative plan is to insert a catheter tomorrow. A follow-up CAT scan of the chest abdomen and pelvis was done and it showed a very large right-sided pleural effusion with almost complete opacification of the right hemithorax and there is extensive consolidation and atelectasis of the right lung base and few paratracheal lymphadenopathy. Abdomen and pelvis showed no indication for any intra-abdominal or pelvic malignancies. Objective - Vital Signs Vital signs: Vital Signs Temp 97.9 F 06/13/22 07:30 Pulse 94 06/13/22 07:30 Resp 16 06/13/22 07:30 BP 126/83 06/13/22 07:30 Pulse Ox 93 L 06/13/22 07:30 FiO2 Intake & Output 06/12/22 06/13/22 06/13/22 18:59 06:59 18:59 Intake Total 1250 Balance 1250 Intake: Intake, IV Titration 300 Amount Sodium Chloride 0.9% 1, 300 000 ml @ 50 mls/hr IV . Q20H [facility] Rx#:[id number] Oral 950 Other: # Voids 2 0 - Exam CONSTITUTIONAL: Sitting up on a bedside edge on the medical surgical unit, appears comfortable, cooperative, no apparent acute distress. HEENT: Neck is supple, no JVD, no lymphadenopathy. RESPIRATORY: Lungs sounds essentially clear throughout, diminished to her right chest. Respirations are symmetrical and nonlabored. Currently on 2 L nasal cannula with oxygen saturation is 94%. Able to achieve 500 mL on her incentive spirometry. Strong cough. CARDIOVASCULAR: Regular rhythm and rate. S1 and S2 present, negative for S3, gallop or murmur. Remote telemetry showing normal sinus rhythm heart rate 86 BPM area GASTROINTESTINAL: Abdomen soft, nontender, nondistended. Active bowel sounds present 4 quadrants. Tolerating diet. Passing flatus. No guarding or rigidity. GENITOURINARY: Continues to void. INTEGUMENTARY: Skin is warm and dry with no evidence of clubbing or cyanosis. MUSKULOSKELETAL: Able to move all extremities, strength equal bilaterally. PSYCHIATRIC: Alert and oriented to person place and time, appropriate affect, intact judgment and insight. - Labs CBC & Chem 7: 06/11/22 21:40 06/11/22 21:40 Labs: Abnormal Lab Results - Last 24 Hours (Table) 06/11/22 06/12/22 06/13/22 Range/Units 21:40 20:14 01:40 POC Glucose (mg/dL) 198 H 146 H (70-110) mg/dL Hemoglobin A1c 6.4 H (0.0-6.0) % 06/13/22 06/13/22 Range/Units 06:23 11:43 POC Glucose (mg/dL) 115 H 168 H (70-110) mg/dL Hemoglobin A1c (0.0-6.0) % Assessment and Plan Plan: Metastatic adenocarcinoma, currently under investigation. Exact source is not clear. The patient has tiny pulmonary nodules less than 1 cm one in the right upper lobe another 1 left upper lobe. The patient also has a large right-sided pleural effusion, malignant based on the previous thoracentesis Recurrent right-sided pleural effusion Shortness of breath secondary to above Acute hypoxic respiratory failure secondary to above Diabetes mellitus Hypothyroidism Previous history of Graves' disease Plan Adenocarcinoma of unknown primary, with a large right-sided pleural effusion awaiting a Pleurx catheter insertion CAT scan of the abdomen and pelvis was noted and there is no indication for intra-abdominal pelvic malignancy Based on the rapid the exhalation of the right-sided pleural effusion, I would recommend a Pleurx catheter insertion which would allow the patient to give herself symptomatic relief with outpatient drainage procedures. The plan is to insert the catheter tomorrow Consult oncology May need tumor markers Resume all medications including thyroid pills, Lipitor and Januvia and metformin We'll continue to follow.
[2022-06-13] MEDS ORDERED: DEXTROSE 50% SYRINGE 50 ML IVP PRN ×2 (14:52)
[2022-06-13 16:37] LABS: Glucose,Whole Blood 177 mg/dL (70-110)
[2022-06-13 20:35] LABS: Glucose,Whole Blood 126 mg/dL (70-110)
[2022-06-14 06:00] LABS: Glucose,Whole Blood 125 mg/dL (70-110)
[2022-06-14] MEDS: INSULIN ASPART (NovoLOG) 100 UNIT/ML VIAL SQ SCH ×4 (06:06→21:42)
[2022-06-14] MEDS: LEVOTHYROXINE 88 MCG TAB PO SCH (06:06)
[2022-06-14] MEDS: ATORVASTATIN 10 MG TAB PO SCH (07:38)
[2022-06-14] MEDS: PANTOPRAZOLE 40 MG/10 ML VIAL IVP SCH (07:40)
[2022-06-14 10:16] LABS: African American GFR (CKD) 74.2 (60.0-200.0); Anion Gap 11.8 mmol/L (10.00-18.00); BUN/Creat Ratio 12.47 Ratio (12.00-20.00); Blood Urea Nitrogen 10.7 mg/dL (9.0-27.0); Calcium 9.3 mg/dL (8.7-10.3); Carbon Dioxide 26.9 mmol/L (20.0-27.5); Potassium 4.2 mmol/L (3.5-5.5)
[2022-06-14] MEDS ORDERED: LACTATED RINGERS 1,000 ML IV ONE (10:21)
[2022-06-14] MEDS ORDERED: MIDAZOLAM 2 MG/2 ML VIAL ONE (10:28)
[2022-06-14] MEDS ORDERED: fentaNYL (PF) 50 MCG/ML 2 ML AMP ONE (10:28)
[2022-06-14 10:37] LABS: Basophils # (A) 0.05 X 10*3/uL (0.00-0.10); Basophils % (A) 0.5 %; Eosinophils # (A) 0.11 X 10*3/uL (0.04-0.35); Eosinophils % (A) 1.1 %; HCT 42.9 % (37.2-46.3); HGB 13.3 g/dL (12.0-15.0); Immature Grans, Automated 0.5 %; Lymphocytes # (A) 1.79 X 10*3/uL (0.90-5.00); MCH 31.5 pg (27.0-32.0); MCV 101.7 fL (80.0-97.0); Mean Platelet Volume 10.7 fL (9.5-12.2); Monocytes # (A) 0.95 X 10*3/uL (0.20-1.00); Monocytes % (A) 9.6 %; NRBC Per 100 WBC 0 /100 WBCS (0.0-0.0); Neutrophils # (A) 6.97 X 10*3/uL (1.80-7.70); Neutrophils % (A) 70.3 %; Platelet Count 335 X 10*3/uL (140-440); RBC 4.22 X 10*6/uL (4.10-5.20); RDW 12.7 % (11.5-14.5); WBC 9.92 X 10*3/uL (4.50-10.00)
[2022-06-14] MEDS ORDERED: LIDOCAINE 1% INJ 10MG/ML (10 ML MDV) SQ ONE ×2 (10:50)
[2022-06-14 11:33] LABS: Glucose,Whole Blood 118 mg/dL (70-110)
--- NOTE | 2022-06-14 11:35 | P.PN ---
Subjective Progress Note Date: 06/14/22 This is a 81-year-old female patient with metastatic adenocarcinoma. The patient presented to the hospital on 06/03/2022 and the patient had a large right-sided pleural effusion. The CAT scan of the chest at that time showed a large right-sided pleural effusion and the patient also had no blurred density in the right upper lobe measuring 1.2 cm and another nodule in the left upper lobe measuring 1 cm. The patient underwent a diagnostic and therapeutic thoracentesis and she felt better. The fluid cytology was positive for malignancy. She was discharged home to be readmitted with worsening shortness of breath and there is again recurrent right-sided pleural effusion with a week of discharge. She is currently on oxygen at 3 L/m nasal cannula. No chest pain. No pleurisy. No hemoptysis. Normal coagulation profile. In terms of cancer screening, the patient has done colonoscopy and EGD many years back. She has also gone previous mammograms. The results are not available to me at this point in time. She'll be seen in oncology regarding her malignancy. My understanding that she has not done routine mammograms. No nausea. No emesis. No melena. No bright red blood per rectum. Hemoglobin is stable at 14.1. This On today's evaluation of 06/13/2022, the patient is doing essentially stable and she is still short of breath and the patient is awaiting a Pleurx catheter insertion and the tentative plan is to insert a catheter tomorrow. A follow-up CAT scan of the chest abdomen and pelvis was done and it showed a very large right-sided pleural effusion with almost complete opacification of the right hemithorax and there is extensive consolidation and atelectasis of the right lung base and few paratracheal lymphadenopathy. Abdomen and pelvis showed no indication for any intra-abdominal or pelvic malignancies. 06/14/2022, clinically stable and the patient is awaiting a Pleurx catheter insertion. This will be done today. No other new complaints otherwise for now.The blood work is within normal limits. White cell count of 9.9 with a hemoglobin of 13.3 and a platelet count of 335. BUN is at 10 with a creatinine of 0.9 his sodium levels of 141. Objective - Vital Signs Vital signs: Vital Signs Temp 98.2 F 06/14/22 11:14 Pulse 100 06/14/22 11:14 Resp 20 06/14/22 11:14 BP 116/62 06/14/22 11:14 Pulse Ox 98 06/14/22 11:14 FiO2 Intake & Output 06/13/22 06/14/22 06/14/22 18:59 06:59 18:59 Intake Total 480 150 Output Total 2 Balance 480 148 Intake: IV 150 Oral 480 Output: Estimated Blood Loss 2 Other: # Voids 2 - Exam CONSTITUTIONAL: Sitting up on a bedside edge on the medical surgical unit, appears comfortable, cooperative, no apparent acute distress. HEENT: Neck is supple, no JVD, no lymphadenopathy. RESPIRATORY: Lungs sounds essentially clear throughout, diminished to her right chest. Respirations are symmetrical and nonlabored. Currently on 2 L nasal cannula with oxygen saturation is 94%. Able to achieve 500 mL on her incentive spirometry. Strong cough. CARDIOVASCULAR: Regular rhythm and rate. S1 and S2 present, negative for S3, gallop or murmur. Remote telemetry showing normal sinus rhythm heart rate 86 BPM area GASTROINTESTINAL: Abdomen soft, nontender, nondistended. Active bowel sounds present 4 quadrants. Tolerating diet. Passing flatus. No guarding or rigidity. GENITOURINARY: Continues to void. INTEGUMENTARY: Skin is warm and dry with no evidence of clubbing or cyanosis. MUSKULOSKELETAL: Able to move all extremities, strength equal bilaterally. PSYCHIATRIC: Alert and oriented to person place and time, appropriate affect, intact judgment and insight. - Labs CBC & Chem 7: 06/14/22 05:35 06/14/22 05:35 Labs: Abnormal Lab Results - Last 24 Hours (Table) 06/13/22 06/13/22 06/13/22 Range/Units 11:43 16:36 20:33 MCV (80.0-97.0) fL MCHC (32.0-37.0) g/dL Immature Gran # (0.00-0.04) X 10*3/uL Glucose (70-110) mg/dL POC Glucose (mg/dL) 168 H 177 H 126 H (70-110) mg/dL 06/14/22 06/14/22 06/14/22 Range/Units 05:35 05:35 05:58 MCV 101.7 H (80.0-97.0) fL MCHC 31.0 L (32.0-37.0) g/dL Immature Gran # 0.05 H (0.00-0.04) X 10*3/uL Glucose 138 H (70-110) mg/dL POC Glucose (mg/dL) 125 H (70-110) mg/dL 06/14/22 Range/Units 11:32 MCV (80.0-97.0) fL MCHC (32.0-37.0) g/dL Immature Gran # (0.00-0.04) X 10*3/uL Glucose (70-110) mg/dL POC Glucose (mg/dL) 118 H (70-110) mg/dL Assessment and Plan Plan: Metastatic adenocarcinoma, currently under investigation. Exact source is not clear. The patient has tiny pulmonary nodules less than 1 cm one in the right upper lobe another 1 left upper lobe. The patient also has a large right-sided pleural effusion, malignant based on the previous thoracentesis Recurrent right-sided pleural effusion Shortness of breath secondary to above Acute hypoxic respiratory failure secondary to above Diabetes mellitus Hypothyroidism Previous history of Graves' disease Plan Proceed with Pleurx catheter insertion today Adenocarcinoma of unknown primary, with a large right-sided pleural effusion CAT scan of the abdomen and pelvis was noted and there is no indication for intra-abdominal pelvic malignancy Based on the rapid the exhalation of the right-sided pleural effusion, I would recommend a Pleurx catheter insertion which would allow the patient to give herself symptomatic relief with outpatient drainage procedures. The plan is to insert the catheter tomorrow Consult oncology May need tumor markers We'll continue to follow.
--- NOTE | 2022-06-14 11:37 | XR ---
EXAMINATION TYPE: XR chest 1V portable DATE OF EXAM: 06/14/2022 11:24 AM COMPARISON: Chest radiographs from 06/13/2022 TECHNIQUE: XR chest 1V portable Portable AP radiograph of the chest. CLINICAL INDICATION:Female, 81 years old with history of Pleural Catheter placement; FINDINGS: Lungs/Pleura: Decrease in right pleural effusion with small left pleural effusion bibasilar atelectas is. There is no evidence of pneumothorax. Pulmonary vascularity: Unremarkable. Heart/mediastinum: Cardiomediastinal silhouette is enlarged and stable. Musculoskeletal: No acute osseous pathology. Lines/Tubes: Right thoracotomy tube is present without evidence of pneumothorax. IMPRESSION: 1. Right thoracotomy tube without large pneumothorax identified. 2. Decrease in right pleural effusion with persistent bilateral pleural effusions and streaky atelec tasis.
[2022-06-14] MEDS ORDERED: HYDROmorphone 0.5 MG/0.5 ML SYRINGE IVP ONE (11:53)
[2022-06-14 16:36] LABS: Glucose,Whole Blood 278 mg/dL (70-110)
[2022-06-14] MEDS: ACETAMINOPHEN TAB 500 MG TAB PO PRN (17:44)
--- NOTE | 2022-06-14 19:43 | OP ---
OPERATIVE REPORT ANESTHESIOLOGIST: Dr. Means. ANESTHESIA: Local with IV sedation. PREOPERATIVE DIAGNOSIS: Recurrent right pleural malignant effusion. POSTOPERATIVE DIAGNOSIS: Recurrent right pleural malignant effusion. PROCEDURE PERFORMED: Insertion of a right-sided PleurX catheter. INDICATION FOR PROCEDURE: The patient is an 81-year-old lady who presented to [facility] in respiratory distress, found to have a large right-sided pleural effusion that was tapped initially for a 1.4 L. That recurred very quickly within days. Cytology is consistent with malignant probably breast in origin. The patient was taken for right PleurX insertion. Risks, benefits, and alternatives were discussed with the patient and her daughter who is a nurse. They understood it and agreed to proceed. DESCRIPTION OF PROCEDURE: The patient received IV sedation and was kept in a semi-Marshall position. The chest and abdomen were both prepped and draped using ChloraPrep. The patient received 2 g of cefazolin intravenously. Proper time-out was conducted. Initially, we accessed the right pleural cavity after ensuring local anesthesia using lidocaine 1% with the fine needle. Modified Seldinger technique followed and we got a wire in the pleural cavity. Subsequently, we anesthetized the tunnel from the right upper quadrant subcutaneously to the insertion and puncture site of the right pleural cavity, which was enlarged to a 0.5 cm opening and we passed a PleurX catheter. The cup was kept around 2 cm from the exit point at the level of the right upper quadrant. Subsequently, using a peel-away sheath that was inserted over the wire, we were able to push the catheter into the pleural cavities and peeled away the sheath. We connected the catheter to a vacuum bottle and drained actually a total of 2 L. Meanwhile, the chest small access incision was closed with Vicryl 3-0 horizontal mattress and for the subcutaneous tissue and skin glue. The catheter was affixed to the skin with a silk 2- 0 at the level of the right upper quadrant. The patient tolerated the procedure well and was transferred to the recovery room in stable condition. Chest x-ray post- procedure showed total resolution of the right pleural effusion. MMODL / IJN: [id number] /
[2022-06-14 20:46] LABS: Glucose,Whole Blood 183 mg/dL (70-110)
[2022-06-15] MEDS: ACETAMINOPHEN TAB 500 MG TAB PO PRN ×3 (00:24→21:38)
--- NOTE | 2022-06-15 01:59 | P.PN ---
Subjective Progress Note Date: 06/13/22 This is a pleasant 81-year-old female with past medical history of Graves' disease, diabetes mellitus II, recently hospitalized with compressive atelectasis, bilateral upper lung nodules, right pleural effusion requiring thoracentesis on 06/04/2022 with 1500 L drained; cytology results now back, reporting positive for metastatic adenocarcinoma, immunostaining results indicating breast is the most likely primary site of origin, possible-less likely primary lung origin, presented to the ER with worsening exertional dyspnea. Daughter reports O2 sat decreased to low 80s at home. Denies any chest pain, palpitations. Denies any fevers or chills. Denies any nausea vomiting diarrhea. Denies any abdominal pain. Chest x-ray reporting prominent interval worsening in the lung inflammation pattern; increased right pleural effusion, now occupying 75% of the right hemothorax, complete atelectasis of the right middle lobe and right lower lobe and components of the right, on the left small pleural effusion present, partial airlessness of the left lobe, mediastinum midline, no pneumothorax, no acute skeletal or soft tissue findings. On admission, O2 sat 92% on room air, currently requiring 2 L nasal cannula to maintain O2 sats in the 90s. Mild tachycardia. 06/13/2022 Patient is currently resting in bed. Awake alert and oriented. Plan for Pleurx catheter placement tomorrow. CT of the abdomen pelvis and chest was done yesterday showed possible bladder cystocele. Correlate with physical via exam needed. Sigmoid diverticulosis without diverticulitis. Labs right pleural effusion with extensive atelectasis and infiltrate right lung. Follow-up recommended. Patient has been afebrile. Laboratory data reviewed. Pulmonary is on board. Current medications reviewed. Objective - Vital Signs Vital signs: Vital Signs Temp 97.5 F L 06/13/22 20:00 Pulse 97 06/13/22 20:00 Resp 18 06/13/22 20:00 BP 150/89 06/13/22 20:00 Pulse Ox 91 L 06/13/22 20:00 FiO2 Intake & Output 06/13/22 06/13/22 06/14/22 06:59 18:59 06:59 Intake Total 480 Balance 480 Intake: Oral 480 Other: # Voids 0 - Exam PHYSICAL EXAM: VITAL SIGNS: As above GENERAL: Sitting up on stretcher, no acute distress HEENT: Conjunctivae normal. eyes normal. NECK: Supple, No JVD. No thyroid enlargement. CARDIOVASCULAR: S1, S2 regular. Mild tachycardia. Systolic murmur RESPIRATION: Breath sounds diminished in the bases, greatest on the right. No rhonchi or crackles. ABDOMEN: Soft, nontender. No guarding. no masses palpable. No ascites, No hepatosplenomegaly.Bowel sounds heard. LEGS: No edema. no swelling, no cyanosis , clubbing or calf tenderness PSYCHIATRY: Alert and oriented X3, mood and affect normal. NERVOUS SYSTEM: Cranial N 2-12 grossly normal. No focal deficits. Strength and sensation grossly intact. Skin: Warm and dry, no rash - Labs CBC & Chem 7: 06/14/22 05:35 06/14/22 05:35 Labs: Abnormal Lab Results - Last 24 Hours (Table) 06/11/22 06/13/22 06/13/22 Range/Units 21:40 01:40 06:23 POC Glucose (mg/dL) 146 H 115 H (70-110) mg/dL Hemoglobin A1c 6.4 H (0.0-6.0) % 06/13/22 06/13/22 06/13/22 Range/Units 11:43 16:36 20:33 POC Glucose (mg/dL) 168 H 177 H 126 H (70-110) mg/dL Hemoglobin A1c (0.0-6.0) % Assessment and Plan Assessment: Recurrent Right pleural effusion with compressive atelectasis, recent thoracocentesis 06/04/2022. New diagnoses -Cytology recently returned, reporting metastatic adenocarcinoma, immunostaining results indicating breast is the most likely primary site of origin, possible-less likely primary lung origin. Acute hypoxic respiratory failure secondary to the above Bilateral upper lung nodule, on the right 1.2 cm and on the left 1.0 cm, history of type 2 diabetes mellitus hypothyroidism Nonsmoker, lifelong Hyperlipidemia Plan: Continue on current medication regime ,monitoring and symptomatic treatment. Cytology results recently returned, oncology consulted. Patient was seen by pulmonary. IR consult for pigtail catheter placement due to right pleural effusion.. Prognosis guarded given multiple complex medical issues.
--- NOTE | 2022-06-15 02:02 | P.PN ---
Subjective Progress Note Date: 06/14/22 This is a pleasant 81-year-old female with past medical history of Graves' disease, diabetes mellitus II, recently hospitalized with compressive atelectasis, bilateral upper lung nodules, right pleural effusion requiring thoracentesis on 06/04/2022 with 1500 L drained; cytology results now back, reporting positive for metastatic adenocarcinoma, immunostaining results indicating breast is the most likely primary site of origin, possible-less likely primary lung origin, presented to the ER with worsening exertional dyspnea. Daughter reports O2 sat decreased to low 80s at home. Denies any chest pain, palpitations. Denies any fevers or chills. Denies any nausea vomiting diarrhea. Denies any abdominal pain. Chest x-ray reporting prominent interval worsening in the lung inflammation pattern; increased right pleural effusion, now occupying 75% of the right hemothorax, complete atelectasis of the right middle lobe and right lower lobe and components of the right, on the left small pleural effusion present, partial airlessness of the left lobe, mediastinum midline, no pneumothorax, no acute skeletal or soft tissue findings. On admission, O2 sat 92% on room air, currently requiring 2 L nasal cannula to maintain O2 sats in the 90s. Mild tachycardia. 06/13/2022 Patient is currently resting in bed. Awake alert and oriented. Plan for Pleurx catheter placement tomorrow. CT of the abdomen pelvis and chest was done yesterday showed possible bladder cystocele. Correlate with physical via exam needed. Sigmoid diverticulosis without diverticulitis. Labs right pleural effusion with extensive atelectasis and infiltrate right lung. Follow-up recommended. Patient has been afebrile. Laboratory data reviewed. Pulmonary is on board. 06/14/2022 Patient is status post right Pleurx catheter placement. 1.4 L fluid removal. Breathing status is better. No complaints of chest pain. No nausea vomiting abdominal diarrhea. No cough or sputum production. Patient has been afebrile. Laboratory data reviewed. Repeat chest x-ray showed right thoracotomy tube without large pneumothorax. Decrease in the right pleural effusion with persistent bilateral pleural effusions and teak atelectasis. Current medications reviewed. Objective - Vital Signs Vital signs: Vital Signs Temp 98.8 F 06/14/22 19:53 Pulse 99 06/14/22 19:53 Resp 18 06/14/22 19:53 BP 132/85 06/14/22 19:53 Pulse Ox 93 L 06/14/22 19:53 FiO2 Intake & Output 06/14/22 06/14/22 06/15/22 06:59 18:59 06:59 Intake Total 250 Output Total 2 Balance 248 Intake: IV 250 Output: Estimated Blood Loss 2 Other: # Voids 2 2 # Bowel Movements 1 - Exam PHYSICAL EXAM: VITAL SIGNS: As above GENERAL: Sitting up on stretcher, no acute distress HEENT: Conjunctivae normal. eyes normal. NECK: Supple, No JVD. No thyroid enlargement. CARDIOVASCULAR: S1, S2 regular. Mild tachycardia. Systolic murmur RESPIRATION: Breath sounds diminished in the bases, greatest on the right. No rhonchi or crackles. ABDOMEN: Soft, nontender. No guarding. no masses palpable. No ascites, No hepatosplenomegaly.Bowel sounds heard. LEGS: No edema. no swelling, no cyanosis , clubbing or calf tenderness PSYCHIATRY: Alert and oriented X3, mood and affect normal. NERVOUS SYSTEM: Cranial N 2-12 grossly normal. No focal deficits. Strength and sensation grossly intact. Skin: Warm and dry, no rash - Labs CBC & Chem 7: 06/14/22 05:35 06/14/22 05:35 Labs: Abnormal Lab Results - Last 24 Hours (Table) 06/14/22 06/14/22 06/14/22 Range/Units 05:35 05:35 05:58 MCV 101.7 H (80.0-97.0) fL MCHC 31.0 L (32.0-37.0) g/dL Immature Gran # 0.05 H (0.00-0.04) X 10*3/uL Glucose 138 H (70-110) mg/dL POC Glucose (mg/dL) 125 H (70-110) mg/dL 06/14/22 06/14/22 06/14/22 Range/Units 11:32 16:32 20:45 MCV (80.0-97.0) fL MCHC (32.0-37.0) g/dL Immature Gran # (0.00-0.04) X 10*3/uL Glucose (70-110) mg/dL POC Glucose (mg/dL) 118 H 278 H 183 H (70-110) mg/dL Assessment and Plan Assessment: Metastatic adenocarcinoma lung primary. Recurrent Right pleural effusion with compressive atelectasis, recent thoracocentesis 06/04/2022. New diagnoses - Cytology recently returned, reporting metastatic adenocarcinoma, immunostaining results indicating breast is the most likely primary site of origin, possible- less likely primary lung origin. Acute hypoxic respiratory failure secondary to the above Bilateral upper lung nodule, on the right 1.2 cm and on the left 1.0 cm, history of type 2 diabetes mellitus hypothyroidism Nonsmoker, lifelong Hyperlipidemia Plan: Continue on current medication regime ,monitoring and symptomatic treatment. Cytology results recently returned, oncology consulted. Patient was seen by pulmonaryFollow-up cytology. Status post pigtail catheter placement by IR with 1.4 L removal from the right pleural effusion.. Prognosis guarded given multiple complex medical issues. Time with Patient: Greater than 30
[2022-06-15 06:27] LABS: Glucose,Whole Blood 133 mg/dL (70-110)
[2022-06-15] MEDS: INSULIN ASPART (NovoLOG) 100 UNIT/ML VIAL SQ SCH ×4 (06:35→21:39)
[2022-06-15] MEDS: LEVOTHYROXINE 88 MCG TAB PO SCH (06:44)
--- NOTE | 2022-06-15 07:32 | XR ---
EXAMINATION TYPE: XR chest 2V DATE OF EXAM: 06/15/2022 COMPARISON: Chest x-ray one day earlier HISTORY: Pleural catheter placement. TECHNIQUE: Frontal and lateral views of the chest are obtained. FINDINGS: Right-sided chest tube redemonstrated. No visualized pneumothorax. Increasing right mid to lower lung opacity. Small bilateral pleural effusions remain present. Cardiac silhouette size stable and mildly enlarged. Cholecystectomy clips are redemonstrated. Osseous structures are intact. IMPRESSION: Developing right mid to lower lung acute infiltrate and/or atelectasis with right-sided chest tube in place. Small bilateral pleural effusions unchanged in size from most recent study.
[2022-06-15 08:44] LABS: Basophils # (A) 0.04 X 10*3/uL (0.00-0.10); Basophils % (A) 0.4 %; Eosinophils # (A) 0.18 X 10*3/uL (0.04-0.35); HCT 38.4 % (37.2-46.3); HGB 11.9 g/dL (12.0-15.0); Immature Grans, Automated 0.3 %; Lymphocytes # (A) 2.16 X 10*3/uL (0.90-5.00); Lymphocytes % (A) 23.6 %; MCH 31.6 pg (27.0-32.0); MCV 102.1 fL (80.0-97.0); Mean Platelet Volume 10.2 fL (9.5-12.2); Monocytes % (A) 9.8 %; NRBC Per 100 WBC 0 /100 WBCS (0.0-0.0); Neutrophils # (A) 5.83 X 10*3/uL (1.80-7.70); Neutrophils % (A) 63.9 %; Platelet Count 310 X 10*3/uL (140-440); RBC 3.76 X 10*6/uL (4.10-5.20); RDW 12.7 % (11.5-14.5); WBC 9.14 X 10*3/uL (4.50-10.00)
--- NOTE | 2022-06-15 08:49 | P.PN ---
Subjective Progress Note Date: 06/15/22 Principal diagnosis: Recurrent right-sided malignant pleural effusion, acute hypoxic respiratory failure present on admission. History of metastatic adenocarcinoma, currently under investigation for primary source, diabetes mellitus type 2, history of Graves' disease, currently hypothyroid, lifetime nonsmoker POD #1 insertion of right-sided Pleurx catheter with drainage of 2 L fluid The patient was seen and examined this morning sitting up in bed eating breakfast in no acute distress. Denies pain, states shortness of breath has significantly improved since admission. Right-sided Pleurx catheter was placed yesterday, teaching was done with family regarding drainage. Chest x-ray reviewed this morning. No other new concerns. Objective - Vital Signs Vital signs: Vital Signs Temp 98.0 F 06/15/22 07:43 Pulse 89 06/15/22 07:43 Resp 16 06/15/22 07:43 BP 117/72 06/15/22 07:43 Pulse Ox 95 06/15/22 07:53 FiO2 Intake & Output 06/14/22 06/15/22 06/15/22 18:59 06:59 18:59 Intake Total 250 Output Total 2 Balance 248 Intake: IV 250 Output: Estimated Blood Loss 2 Other: Voiding Method Toilet # Voids 2 3 # Bowel Movements 1 - Exam CONSTITUTIONAL: Appears comfortable, cooperative, no acute distress RESPIRATORY: Lungs sounds diminished bilaterally, right greater than left. Respirations even, nonlabored. Currently on 2 L nasal cannula with oxygen saturation 97% CARDIOVASCULAR: S1, S2 present. Regular rate and rhythm. Palpable peripheral pulses bilaterally. No edema present GASTROINTESTINAL: Abdomen soft, nontender, nondistended. Active bowel sounds present 4 quadrants. Tolerating diet GENITOURINARY: Continues to void INTEGUMENTARY: Skin is warm and dry with evidence of good perfusion. Right- sided Pleurx catheter present under clean dry dressing NEUROLOGIC: Cranial nerves II through XII intact MUSKULOSKELETAL: Able to move all extremities, strength equal bilaterally PSYCHIATRIC: Alert and oriented to person place and time, appropriate affect, intact judgment and insight - Allied health notes Allied health notes reviewed: nursing - Labs CBC & Chem 7: 06/14/22 05:35 06/14/22 05:35 Labs: Abnormal Lab Results - Last 24 Hours (Table) 06/14/22 06/14/22 06/14/22 Range/Units 05:35 05:35 11:32 MCV 101.7 H (80.0-97.0) fL MCHC 31.0 L (32.0-37.0) g/dL Immature Gran # 0.05 H (0.00-0.04) X 10*3/uL Glucose 138 H (70-110) mg/dL POC Glucose (mg/dL) 118 H (70-110) mg/dL 06/14/22 06/14/22 06/15/22 Range/Units 16:32 20:45 06:26 MCV (80.0-97.0) fL MCHC (32.0-37.0) g/dL Immature Gran # (0.00-0.04) X 10*3/uL Glucose (70-110) mg/dL POC Glucose (mg/dL) 278 H 183 H 133 H (70-110) mg/dL - Imaging and Cardiology Chest x-ray: report reviewed, image reviewed Assessment and Plan Assessment: 1. Recurrent right-sided malignant pleural effusion, status post right-sided Pleurx catheter insertion 2. Acute hypoxic respiratory failure present on admission 3. History of metastatic adenocarcinoma, currently under investigation for primary source 4. Diabetes mellitus type 2 5. History of Graves' disease 6. Currently hypothyroid on Synthroid 7. Lifetime nonsmoker Plan: 1. Patient may be discharged to home from our standpoint when okay with other services. Home care ordered 2. Teaching completed with the family regarding Pleurx catheter drainage 3. Drainage frequency dictated by patient's symptoms, initially planned to drain 3 times per week, may increase or decrease frequency dependent on patient's symptoms 4. Pleurx catheter discharge instructions placed on discharge plan 5. Once the drainage is less than 50 mL for 3 times in a row patient/family may contact our office for Pleurx catheter removal 6. Will see again on an as-needed basis. Please call us with any further questions 7. Medical management of other comorbidities per internal medicine, oncology, pulmonology
[2022-06-15] MEDS: PANTOPRAZOLE 40 MG/10 ML VIAL IVP SCH (08:53)
[2022-06-15] MEDS: ATORVASTATIN 10 MG TAB PO SCH (08:53)
[2022-06-15 09:12] LABS: ALT 10 U/L (8-44); AST 30 U/L (13-35); Albumin 2.8 g/dL (3.8-4.9); Albumin/Globulin Ratio 1.17 (1.60-3.17); Alkaline Phosphatase 63 U/L (41-126); Blood Urea Nitrogen 12.6 mg/dL (9.0-27.0); Calcium 8.6 mg/dL (8.7-10.3); Cancer Antigen 153 27.5 U/mL (0.0-32.3); Carbon Dioxide 32.4 mmol/L (20.0-27.5); Chloride 103 mmol/L (96-109); Globulin 2.4 g/dL (1.6-3.3); Glucose 124 mg/dL (70-110); Non-African American GFR(CKD) 60.4 (60.0-200.0); Potassium 4.9 mmol/L (3.5-5.5); Sodium 141 mmol/L (135-145); Total Bilirubin <0.15 mg/dL (0.30-1.20); Total Protein 5.2 g/dL (6.2-8.2)
[2022-06-15 11:51] LABS: Glucose,Whole Blood 129 mg/dL (70-110)
--- NOTE | 2022-06-15 12:39 | P.PN ---
Subjective Progress Note Date: 06/15/22 Principal diagnosis: Metastatic adenocarcinoma This is a 81-year-old female patient with metastatic adenocarcinoma. The patient presented to the hospital on 06/03/2022 and the patient had a large right-sided pleural effusion. The CAT scan of the chest at that time showed a large right-sided pleural effusion and the patient also had no blurred density in the right upper lobe measuring 1.2 cm and another nodule in the left upper lobe measuring 1 cm. The patient underwent a diagnostic and therapeutic thoracentesis and she felt better. The fluid cytology was positive for malignancy. She was discharged home to be readmitted with worsening shortness of breath and there is again recurrent right-sided pleural effusion with a week of discharge. She is currently on oxygen at 3 L/m nasal cannula. No chest pain. No pleurisy. No hemoptysis. Normal coagulation profile. In terms of cancer screening, the patient has done colonoscopy and EGD many years back. She has also gone previous mammograms. The results are not available to me at this point in time. She'll be seen in oncology regarding her malignancy. My understanding that she has not done routine mammograms. No nausea. No emesis. No melena. No bright red blood per rectum. Hemoglobin is stable at 14.1. This On today's evaluation of 06/13/2022, the patient is doing essentially stable and she is still short of breath and the patient is awaiting a Pleurx catheter insertion and the tentative plan is to insert a catheter tomorrow. A follow-up CAT scan of the chest abdomen and pelvis was done and it showed a very large right-sided pleural effusion with almost complete opacification of the right hemithorax and there is extensive consolidation and atelectasis of the right lung base and few paratracheal lymphadenopathy. Abdomen and pelvis showed no indication for any intra-abdominal or pelvic malignancies. 06/14/2022, clinically stable and the patient is awaiting a Pleurx catheter insertion. This will be done today. No other new complaints otherwise for now.The blood work is within normal limits. White cell count of 9.9 with a hemoglobin of 13.3 and a platelet count of 335. BUN is at 10 with a creatinine of 0.9 his sodium levels of 141. Evaluating this patient today on 06/15/2022 on a general medical floor. She is currently sitting up in chair, on 3L nasal canula, in no apparent distress. Patient did have her right Pleurx catheter inserted by cardiothoracic yesterday on June 14. Cardiothoracic surgery has educated patient and her daughter to use the Pleurx catheter. Patient continues to deny any shortness of breath, hemoptysis, fevers overnight. Chest x-ray from today shows a developing right lung acute infiltrate and/or atelectasis with her right side Pleurx catheter in place. There are some persistent small bilateral pleural effusions. CBC from today shows that CBC count of 9.1, hemoglobin 11.9, hematocrit 38.4, platelets 310,000. BMP from today show sodium 141, potassium 4.9, chloride 103, serum CO2 32.4, BUN 12.6, creatinine 0.9, glucose 124. Vital signs remain stable, and patient remains afebrile. Further testing recommended by oncology to identify primary. Objective - Vital Signs Vital signs: Vital Signs Temp 98.0 F 06/15/22 07:43 Pulse 89 06/15/22 08:53 Resp 16 06/15/22 08:53 BP 117/72 06/15/22 07:43 Pulse Ox 95 06/15/22 07:53 FiO2 Intake & Output 06/14/22 06/15/22 06/15/22 18:59 06:59 18:59 Intake Total 250 120 Output Total 2 Balance 248 120 Intake: IV 250 Oral 120 Output: Estimated Blood Loss 2 Other: Voiding Method Toilet Toilet # Voids 2 3 # Bowel Movements 1 - Exam CONSTITUTIONAL: Sitting up in bed, appears comfortable, cooperative, no apparent acute distress. HEENT: Neck is supple, no JVD, no lymphadenopathy. RESPIRATORY: Lungs sounds essentially clear throughout, diminished sounds in lower right chest. Respirations are symmetrical and nonlabored. Currently on 3 L nasal cannula with oxygen saturation is 95%. Incentive spirometer at bedside. There is a right Pleurx catheter in place. Will no conversational dyspnea or accessory muscle use. CARDIOVASCULAR: Regular rhythm and rate. S1 and S2 present, negative for S3, gallop or murmur. Remote telemetry showing normal sinus rhythm heart rate 8 BPM area GASTROINTESTINAL: Abdomen soft, nontender, nondistended. Active bowel sounds present 4 quadrants. Tolerating diet. Passing flatus. No guarding or rigidity. INTEGUMENTARY: Skin is warm and dry with no evidence of clubbing or cyanosis. MUSKULOSKELETAL: Able to move all extremities, strength equal bilaterally. PSYCHIATRIC: Alert and oriented to person place and time, appropriate affect, intact judgment and insight. - Labs CBC & Chem 7: 06/15/22 04:46 06/15/22 04:46 Labs: Abnormal Lab Results - Last 24 Hours (Table) 06/14/22 06/14/22 06/15/22 Range/Units 16:32 20:45 04:46 RBC 3.76 L (4.10-5.20) X 10*6/uL Hgb 11.9 L (12.0-15.0) g/dL MCV 102.1 H (80.0-97.0) fL MCHC 31.0 L (32.0-37.0) g/dL Carbon Dioxide (20.0-27.5) mmol/L Anion Gap (10.00-18.00) mmol/L Glucose (70-110) mg/dL POC Glucose (mg/dL) 278 H 183 H (70-110) mg/dL Calcium (8.7-10.3) mg/dL Total Bilirubin (0.30-1.20) mg/dL Total Protein (6.2-8.2) g/dL Albumin (3.8-4.9) g/dL Albumin/Globulin Ratio (1.60-3.17) g/dL 06/15/22 06/15/22 06/15/22 Range/Units 04:46 06:26 11:47 RBC (4.10-5.20) X 10*6/uL Hgb (12.0-15.0) g/dL MCV (80.0-97.0) fL MCHC (32.0-37.0) g/dL Carbon Dioxide 32.4 H (20.0-27.5) mmol/L Anion Gap 5.60 L (10.00-18.00) mmol/L Glucose 124 H (70-110) mg/dL POC Glucose (mg/dL) 133 H 129 H (70-110) mg/dL Calcium 8.6 L (8.7-10.3) mg/dL Total Bilirubin <0.15 L (0.30-1.20) mg/dL Total Protein 5.2 L (6.2-8.2) g/dL Albumin 2.8 L (3.8-4.9) g/dL Albumin/Globulin Ratio 1.17 L (1.60-3.17) g/dL Assessment and Plan Assessment: Metastatic adenocarcinoma, currently under investigation. Exact source is not clear. The patient has tiny pulmonary nodules less than 1 cm one in the right upper lobe another 1 left upper lobe. The patient also has a large right-sided pleural effusion, malignant based on the previous thoracentesis Recurrent right-sided pleural effusion, Pleurx catheter in place. Family and patient were educated Shortness of breath secondary to above Acute hypoxic respiratory failure secondary to above Diabetes mellitus Hypothyroidism Previous history of Graves' disease Plan: Patient's medications, labs, chest x-ray reviewed. Primary source of adenocarcinoma currently under investigation and directed by oncology right Pleurx catheter was inserted. Continue supplemental oxygen to maintain oxygen saturation 92% or greater continued GI prophylaxis with Protonix We will continue to follow I have personally seen and examined the patient, performed the documentation and the assessment and plan as written. Number of minutes spent on the visit: 10. Time with Patient: Less than 30
--- NOTE | 2022-06-15 13:11 | P.PN ---
Subjective Progress Note Date: 06/15/22 Principal diagnosis: malignant pleural effusion Pt reports breathing much better today after thoracentesis. She has a pleurex drain now, no significant pain post insertion. She is on 2L O2 with sat in the 90's. Objective - Vital Signs Vital signs: Vital Signs Temp 98.0 F 06/15/22 07:43 Pulse 89 06/15/22 08:53 Resp 16 06/15/22 08:53 BP 117/72 06/15/22 07:43 Pulse Ox 95 06/15/22 07:53 FiO2 Intake & Output 06/14/22 06/15/22 06/15/22 18:59 06:59 18:59 Intake Total 250 120 Output Total 2 Balance 248 120 Intake: IV 250 Oral 120 Output: Estimated Blood Loss 2 Other: Voiding Method Toilet Toilet # Voids 2 3 # Bowel Movements 1 - Constitutional General appearance: Present: average body habitus, cooperative, no acute distress - EENT Eyes: Present: anicteric sclerae, EOMI ENT: Present: hearing grossly normal - Respiratory Respiratory: bilateral: rales (lower lobes) - Cardiovascular Rhythm: regular Heart sounds: normal: S1, S2 Abnormal Heart Sounds: Absent: systolic murmur, diastolic murmur, rub, S3 Gallop, S4 Gallop, click, other - Gastrointestinal General gastrointestinal: Present: normal bowel sounds - Integumentary Integumentary: Present: normal - Neurologic Neurologic: Present: CNII-XII intact - Musculoskeletal Musculoskeletal: Present: generalized weakness, strength equal bilaterally - Labs CBC & Chem 7: 06/15/22 04:46 06/15/22 04:46 Labs: Abnormal Lab Results - Last 24 Hours (Table) 06/14/22 06/14/22 06/15/22 Range/Units 16:32 20:45 04:46 RBC 3.76 L (4.10-5.20) X 10*6/uL Hgb 11.9 L (12.0-15.0) g/dL MCV 102.1 H (80.0-97.0) fL MCHC 31.0 L (32.0-37.0) g/dL Carbon Dioxide (20.0-27.5) mmol/L Anion Gap (10.00-18.00) mmol/L Glucose (70-110) mg/dL POC Glucose (mg/dL) 278 H 183 H (70-110) mg/dL Calcium (8.7-10.3) mg/dL Total Bilirubin (0.30-1.20) mg/dL Total Protein (6.2-8.2) g/dL Albumin (3.8-4.9) g/dL Albumin/Globulin Ratio (1.60-3.17) g/dL 06/15/22 06/15/22 06/15/22 Range/Units 04:46 06:26 11:47 RBC (4.10-5.20) X 10*6/uL Hgb (12.0-15.0) g/dL MCV (80.0-97.0) fL MCHC (32.0-37.0) g/dL Carbon Dioxide 32.4 H (20.0-27.5) mmol/L Anion Gap 5.60 L (10.00-18.00) mmol/L Glucose 124 H (70-110) mg/dL POC Glucose (mg/dL) 133 H 129 H (70-110) mg/dL Calcium 8.6 L (8.7-10.3) mg/dL Total Bilirubin <0.15 L (0.30-1.20) mg/dL Total Protein 5.2 L (6.2-8.2) g/dL Albumin 2.8 L (3.8-4.9) g/dL Albumin/Globulin Ratio 1.17 L (1.60-3.17) g/dL - Imaging and Cardiology CT scan - abdomen: report reviewed CT scan - chest: report reviewed CT scan - pelvis: report reviewed US left breast report reviewed Assessment and Plan (1) Adenocarcinoma Current Visit: Yes Status: Acute Priority: High Code(s): C80.1 - MALIGNANT (PRIMARY) NEOPLASM, UNSPECIFIED SNOMED Code(s): 519500245 (2) Shortness of breath Current Visit: Yes Status: Acute Priority: High Code(s): R06.02 - S HORTNESS OF BREATH SNOMED Code(s): 708768329 Plan: Adenocarcinoma: -Recently hospitalized with compressive atelectasis, bilateral upper lung n odules, right pleural effusion which required thoracentesis on 06/04/2022 with 1500 L drained. Cytology results returned on 06/11/21, positive for metastatic adenocarcinoma, immunostaining results indicating breast is the most likely primary site of origin, with less likely primary lung origin. -Malignant effusion and will continue to recur until the underlying cause is treated. Pt is s/p insertion of pleurex drain. Reports improved breathing -CT CAP, no lesions noted, pl effusion. -Left breast/axilla ultrasound revealed breast mass and possible LN. IR consulted for core biopsy of the breast mass. -Patient and daughter were updated on CT and US results. Recommendation is for biopsy, they agree with plan. -Pt is ok from an Oncology standpoint, after biopsy pt is ok for DC once cleared by Attending and all other Consulting MDs -Will get f/u appt to the chart
[2022-06-15 16:48] LABS: Glucose,Whole Blood 197 mg/dL (70-110)
[2022-06-15] MEDS ORDERED: LINAGLIPTIN 5 MG TABLET PO SCH (21:00)
[2022-06-15 21:09] LABS: Glucose,Whole Blood 199 mg/dL (70-110)
[2022-06-15] MEDS: metFORMIN 500 MG TAB PO SCH (21:38)
--- NOTE | 2022-06-15 21:47 | P.PN ---
Subjective Progress Note Date: 06/15/22 Patient seen and examined upright in bed with her daughter at bedside. 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 She is the most likely primary at this point seems to be breast as ultrasound showed a suspicion for malignancy. This is currently under investigation by oncology and this was discussed in full detail with patient with daughter at bedside Objective - Vital Signs Vital signs: Vital Signs Temp 97.6 F 06/15/22 20:00 Pulse 94 06/15/22 20:00 Resp 18 06/15/22 20:00 BP 114/82 06/15/22 20:00 Pulse Ox 96 06/15/22 20:00 FiO2 Intake & Output 06/15/22 06/15/22 06/16/22 06:59 18:59 06:59 Intake Total 360 Balance 360 Intake: Oral 360 Other: Voiding Method Toilet Toilet Toilet # Voids 3 2 - Exam VITAL SIGNS: As above GENERAL: Sitting up inbed., no acute distress HEENT: Conjunctivae normal. eyes normal. NECK: Supple, No JVD. No thyroid enlargement. CARDIOVASCULAR: S1, S2 regular. Mild tachycardia. Systolic murmur RESPIRATION: Breath sounds diminished in the bases, greatest on the right. No rhonchi or crackles. ABDOMEN: Soft, nontender. No guarding. no masses palpable. No ascites, No hepatosplenomegaly.Bowel sounds heard. LEGS: No edema. no swelling, no cyanosis , clubbing or calf tenderness PSYCHIATRY: Alert and oriented X3, mood and affect normal. NERVOUS SYSTEM: Cranial N 2-12 grossly normal. No focal deficits. Strength and sensation grossly intact. Skin: Warm and dry, no rash - Labs CBC & Chem 7: 06/15/22 04:46 06/15/22 04:46 Labs: Abnormal Lab Results - Last 24 Hours (Table) 06/15/22 06/15/22 06/15/22 Range/Units 04:46 04:46 06:26 RBC 3.76 L (4.10-5.20) X 10*6/uL Hgb 11.9 L (12.0-15.0) g/dL MCV 102.1 H (80.0-97.0) fL MCHC 31.0 L (32.0-37.0) g/dL Carbon Dioxide 32.4 H (20.0-27.5) mmol/L Anion Gap 5.60 L (10.00-18.00) mmol/L Glucose 124 H (70-110) mg/dL POC Glucose (mg/dL) 133 H (70-110) mg/dL Calcium 8.6 L (8.7-10.3) mg/dL Total Bilirubin <0.15 L (0.30-1.20) mg/dL Total Protein 5.2 L (6.2-8.2) g/dL Albumin 2.8 L (3.8-4.9) g/dL Albumin/Globulin Ratio 1.17 L (1.60-3.17) g/dL 06/15/22 06/15/22 06/15/22 Range/Units 11:47 16:44 21:08 RBC (4.10-5.20) X 10*6/uL Hgb (12.0-15.0) g/dL MCV (80.0-97.0) fL MCHC (32.0-37.0) g/dL Carbon Dioxide (20.0-27.5) mmol/L Anion Gap (10.00-18.00) mmol/L Glucose (70-110) mg/dL POC Glucose (mg/dL) 129 H 197 H 199 H (70-110) mg/dL Calcium (8.7-10.3) mg/dL Total Bilirubin (0.30-1.20) mg/dL Total Protein (6.2-8.2) g/dL Albumin (3.8-4.9) g/dL Albumin/Globulin Ratio (1.60-3.17) g/dL Assessment and Plan (1) Adenocarcinoma Current Visit: Yes Status: Acute Priority: High Code(s): C80.1 - MALIGNANT (PRIMARY) NEOPLASM, UNSPECIFIED SNOMED Code(s): 266424178 (2) Hypoxia Current Visit: Yes Status: Acute Code(s): R09.02 - HYPOXEMIA SNOMED C ode(s): 442439953 (3) Pleural effusion Current Visit: Yes Status: Acute Code(s): J90 - PLEURAL EFFUSION, NOT ELSEWHERE CLASSIFIED SNOMED Code(s): 93929416 (4) Shortness of breath Current Visit: Yes Status: Acute Priority: High Code(s): R06.02 - SHORTNESS OF BREATH SNOMED Code(s): 599078807 (5) Pleural effusion, right Current Visit: No Status: Acute Code(s): J90 - PLEURAL EFFUSION, NOT ELSEWHERE CLASSIFIED SNOMED Code(s): 73116184 Plan: Plan is to finish workup for metastatic adenocarcinoma from oncology she's had a port placed and will require a biopsy by interventional radiologist after that she could be discharged if cleared with close follow-up with oncology and pulmonary. Time with Patient: Greater than 30
[2022-06-16 06:16] LABS: Glucose,Whole Blood 92 mg/dL (70-110)
[2022-06-16] MEDS: INSULIN ASPART (NovoLOG) 100 UNIT/ML VIAL SQ SCH ×2 (06:31→13:15)
[2022-06-16] MEDS: ACETAMINOPHEN TAB 500 MG TAB PO PRN ×2 (06:33→10:14)
[2022-06-16] MEDS: LEVOTHYROXINE 88 MCG TAB PO SCH (06:33)
[2022-06-16] MEDS ORDERED: PANTOPRAZOLE 40 MG TABLET PO SCH (09:00)
[2022-06-16] MEDS: metFORMIN 500 MG TAB PO SCH (10:14)
[2022-06-16] MEDS: ATORVASTATIN 10 MG TAB PO SCH (10:14)
--- NOTE | 2022-06-16 13:26 | P.PN ---
Subjective Progress Note Date: 06/16/22 Principal diagnosis: Metastatic adenocarcinoma with malignant pleural effusion This is a 81-year-old female patient with metastatic adenocarcinoma. The patient presented to the hospital on 06/03/2022 and the patient had a large right-sided pleural effusion. The CAT scan of the chest at that time showed a large right-sided pleural effusion and the patient also had no blurred density in the right upper lobe measuring 1.2 cm and another nodule in the left upper lobe measuring 1 cm. The patient underwent a diagnostic and therapeutic thoracentesis and she felt better. The fluid cytology was positive for malignancy. She was discharged home to be readmitted with worsening shortness of breath and there is again recurrent right-sided pleural effusion with a week of discharge. She is currently on oxygen at 3 L/m nasal cannula. No chest pain. No pleurisy. No hemoptysis. Normal coagulation profile. In terms of cancer screening, the patient has done colonoscopy and EGD many years back. She has also gone previous mammograms. The results are not available to me at this point in time. She'll be seen in oncology regarding her malignancy. My understanding that she has not done routine mammograms. No nausea. No emesis. No melena. No bright red blood per rectum. Hemoglobin is stable at 14.1. This On today's evaluation of 06/13/2022, the patient is doing essentially stable and she is still short of breath and the patient is awaiting a Pleurx catheter ins ertion and the tentative plan is to insert a catheter tomorrow. A follow-up CAT scan of the chest abdomen and pelvis was done and it showed a very large right- sided pleural effusion with almost complete opacification of the right hemithorax and there is extensive consolidation and atelectasis of the right lung base and few paratracheal lymphadenopathy. Abdomen and pelvis showed no indication for any intra-abdominal or pelvic malignancies. 06/14/2022, clinically stable and the patient is awaiting a Pleurx catheter insertion. This will be done today. No other new complaints otherwise for no w.The blood work is within normal limits. White cell count of 9.9 with a hemoglobin of 13.3 and a platelet count of 335. BUN is at 10 with a creatinine of 0.9 his sodium levels of 141. Evaluating this patient today on 06/15/2022 on a general medical floor. She is currently sitting up in chair, on 3L nasal canula, in no apparent distress. Patient did have her right Pleurx catheter inserted by cardiothoracic yesterday on June 14. Cardiothoracic surgery has educated patient and her daughter to use the Pleurx catheter. Patient continues to deny any shortness of breath, hemoptysis, fevers overnight. Chest x-ray from today shows a developing right lung acute infiltrate and/or atelectasis with her right side Pleurx catheter in place. There are some persistent small bilateral pleural effusions. CBC from today shows that CBC count of 9.1, hemoglobin 11.9, hematocrit 38.4, platelets 310,000. BMP from today show sodium 141, potassium 4.9, chloride 103, serum CO2 32.4, BUN 12.6, creatinine 0.9, glucose 124. Vital signs remain stable, and patient remains afebrile. Further testing recommended by oncology to identify primary. Patient was reevaluated today on 06/16/2022, patient is scheduled to undergo core biopsy of the left breast lesion, pulmonary-patel the patient is doing great, asymptomatic, continues to have the Pleurx catheter in place, and I believe the patient and her daughter were instructed on how to drain the Pleurx catheter. Patient has no active pulmonary symptoms, and again she may be discharged home today after her breast biopsy. No labs were drawn today, reviewed the labs from yesterday and they are basically unremarkable. Objective - Vital Signs Vital signs: Vital Signs Temp 98.0 F 06/16/22 07:47 Pulse 85 06/16/22 11:58 Resp 16 06/16/22 11:58 BP 120/62 06/16/22 11:58 Pulse Ox 98 06/16/22 11:58 FiO2 Intake & Output 06/15/22 06/16/22 06/16/22 18:59 06:59 18:59 Intake Total 360 200 Balance 360 200 Intake: Oral 360 200 Other: Voiding Method Toilet Toilet # Voids 2 1 - Exam Physical Exam: Revealed 81-year-old female in no distress, daughter is at bedside. Head: Atraumatic, normocephalic. HEENT:[Neck is supple.] [No neck masses.] [No thyromegaly.] [No JVD.] Chest: [Symmetrical chest expansion, right-sided Pleurx catheter noted, no rhonchi and no wheezes. Cardiac Exam: [Normal S1 and S2, no S3 gallop, no murmur.] Abdomen: [Soft, nontender, no megaly, no rebound, no guarding, normal bowel sounds.] Extremities: [No clubbing, no edema, no cyanosis.] Neurological Exam: [No focal neurologic deficit.] Alert oriented 3. Psychiatric: Normal mood affect and normal mental status examination. - Labs CBC & Chem 7: 06/15/22 04:46 06/15/22 04:46 Labs: Abnormal Lab Results - Last 24 Hours (Table) 06/15/22 06/15/22 Range/Units 16:44 21:08 POC Glucose (mg/dL) 197 H 199 H (70-110) mg/dL Assessment and Plan Assessment: Impression: Metastatic adenocarcinoma, , exact primary source is not clear, but most likely breast cancer related. Malignant right-sided pleural effusion, status post Pleurx catheter placement Shortness of breath secondary to above Acute hypoxic respiratory failure secondary to above Diabetes mellitus Hypothyroidism Previous history of Graves' disease Recommendations: Continue present supportive care measures Continue oxygen and titrate accordingly may or may not require home oxygen. Proceed with left breast biopsy as scheduled by interventional radiology Patient will be cleared from our perspective for discharge home if cleared by other consultants after her breast biopsy today. Patient to follow up on outpatient basis with all his and with oncology Time with Patient: Less than 30
[2022-06-16 14:06] VITALS: RESP 17; TEMP 97.9
[2022-06-16 14:54] VITALS: BP 111/76; PULSE 89
--- NOTE | 2022-06-16 16:22 | P.DS ---
Providers Date of admission: 06/11/22 22:48 Expected date of discharge: 06/16/22 Attending physician: Dakota Sutton Consults: 06/11/22 22:46 Consult Physician Routine Consulting Provider: Bg Pickard Consult Reason/Comments: Recurrent plueral effusion with hypoxia Do you want consulting provider notified?: Yes, Notify in am 06/12/22 11:32 Consult Physician Routine Consulting Provider: Travis Carrasquillo Consult Reason/Comments: Metastatic adenocarcinoma-pleural fluid, thoracentesis 06/04/2022 Do you want consulting provider notified?: Yes 06/12/22 14:47 Consult Physician Routine Consulting Provider: Kelsy Pat Consult Reason/Comments: Pleurex Catheter insertion Do you want consulting provider notified?: Yes Primary care physician: Dakota Sutton Hospital Course: Final Diagnoses: (1) Adenocarcinoma, metastatic, suspect breast as primary, status post biopsy Current Visit: Yes Status: Acute Priority: High Code(s): C80.1 - MALIGNANT (PRIMARY) NEOPLASM, UNSPECIFIED SNOMED Code(s): 674828797 (2) Hypoxia secondary to the above Current Visit: Yes Status: Acute Code(s): R09.02 - HYPOXEMIA SNOMED Code(s): 445392398 (3) Pleural effusion Current Visit: Yes Status: Acute Code(s): J90 - PLEURAL EFFUSION, NOT ELSEWHERE CLASSIFIED SNOMED Code(s): 91488469 (4) Shortness of breath Current Visit: Yes Status: Acute Priority: High Code(s): R06.02 - SHORTNESS OF BREATH SNOMED Code(s): 610783582 (5) Pleural effusion, right secondary to malignant right-sided pleural effusion Current Visit: No Status: Acute Code(s): J90 - PLEURAL EFFUSION, NOT ELSEWHERE CLASSIFIED SNOMED Code(s): 50564187 (6) diabetes mellitus (7) hypothyroidism (8) History of Graves' disease Hospital course:This is a pleasant 81-year-old female with past medical history of Graves' disease, diabetes mellitus II, recently hospitalized with compressive atelectasis, bilateral upper lung nodules, right pleural effusion requiring thoracentesis on 06/04/2022 with 1500 L drained; cytology results now back, reporting positive for metastatic adenocarcinoma, immunostaining results indicating breast is the most likely primary site of origin, possible-less likely primary lung origin, presented to the ER with worsening exertional dyspnea. Daughter reports O2 sat decreased to low 80s at home. Denies any chest pain, palpitations. Denies any fevers or chills. Denies any nausea vomiting diarrhea. Denies any abdominal pain. Chest x-ray reporting prominent interval worsening in the lung inflammation pattern; increased right pleural effusion, now occupying 75% of the right hemothorax, complete atelectasis of the right middle lobe and right lower lobe and components of the right, on the left small pleural effusion present, partial airlessness of the left lobe, mediastinum midline, no pneumothorax, no acute skeletal or soft tissue findings. On admission, O2 sat 92% on room air, currently requiring 2 L nasal cannula to maintain O2 sats in the 90s. Mild tachycardia. Required Pleurx catheter as per CTS. Maintaining O2 sats in the high 90s on 2 L nasal cannula. Afebrile, normal WBC. Scheduled for core biopsy of left breast lesion per interventional radiology today. Patient will be discharged home today in a stable condition with guarded prognosis pending final DC recommendations and clearance as per oncology, pulmonary, CTS, following completion of breast biopsy. The impression and plan of care has been dictated as directed. : I performed a history and examination of this patient, discussed the same with the dictator. I agree with the dictator's note ,documented as a scribe. Any additional findings or plans will be noted. The impression and plan of care has been dictated as directed. Dr.: I performed a history and examination of this patient, discussed the same with the dictator. I agree with the dictator's note ,documented as a scribe. Any additional findings or plans will be noted. Patient Condition at Discharge: Stable Plan - Discharge Summary Discharge Rx Participant: No New Discharge Prescriptions: Continue Atorvastatin [Lipitor] 10 mg PO DAILY Calcium Carbonate [Tums] 1,000 mg PO TID PRN PRN Reason: Heartburn glipiZIDE [glipiZIDE ER] 2.5 mg PO DAILY Famotidine/Ca Carb/Mag Hydrox [Pepcid Complete Tablet Chew] 1 tab PO TID PRN PRN Reason: Indigestion Levothyroxine Sodium [Synthroid] 88 mcg PO DAILY sitaGLIPtin PHOS/metFORMIN HCL [Janumet 50-500 mg Tablet] 1 tab PO BID Acetaminophen Tab [Tylenol] 500 mg PO Q6HR PRN tab PRN Reason: Fever And/ Or Pain Discharge Medication List Atorvastatin [Lipitor] 10 mg PO DAILY 06/03/22 [History] Calcium Carbonate [Tums] 1,000 mg PO TID PRN 06/03/22 [History] Famotidine/Ca Carb/Mag Hydrox [Pepcid Complete Tablet Chew] 1 tab PO TID PRN 06/03/22 [History] Levothyroxine Sodium [Synthroid] 88 mcg PO DAILY 06/03/22 [History] glipiZIDE [glipiZIDE ER] 2.5 mg PO DAILY 06/03/22 [History] sitaGLIPtin PHOS/metFORMIN HCL [Janumet 50-500 mg Tablet] 1 tab PO BID 06/03/22 [History] Acetaminophen Tab [Tylenol] 500 mg PO Q6HR PRN tab 06/05/22 [Rx] Follow up Appointment(s)/Referral(s): Kelsy Pat MD [STAFF PHYSICIAN] - As Needed (Once drainage rom Pleurx is less than 50 ml for 3 times in a row contact the office for appointment for removal) George Vinson MD [STAFF PHYSICIAN] - 06/30/22 9:00 am Dakota Sutton DO [Primary Care Provider] - 06/22/22 2:10 pm [facility] [NON-STAFF] - As Needed (oxygen) [facility] Visiting Nurse, [NON-STAFF] - As Needed (AGENCY WILL CONTACT YOU.) Patient Instructions/Handouts: Using Oxygen at Home (DC), Pleural Effusion (DC), How to Care for Your Chest or Abdominal Catheter (DC) Activity/Diet/Wound Care/Special Instructions: Patient will require 2L NC oxygen to manage dx: malignant pleural effusion and metastatic adenocarcinoma. PleurX catheter ordered through [facility]: #[phone]/ fax #[phone] PLEURX DISCHARGE INSTRUCTIONS: 1. Home care is ordered, they will obtain new bottles. 2. May shower after 24 hours, no baths/hot tubs. 3. Do not drain more than 1 L or 1000 mL from the Pleurx catheter in 24 hours. 4. NEW drainage bottles needed with each drainage. 5. Drainage frequency dictated by the patient's symptoms, may be every day, every other day, weekly or as needed if the patient is symptomatic. 6. Please notify the nurse practitioner or surgeons office if temperature is greater than 101F, excessive pain at insertion site, drainage consistency changes to cloudy or smells bad, catheter falls out. 7. Contact surgery office with weekly drainage amount. May fax the amounts. 8. Once drainage is less than 50 mL 3 times in a row, notify the surgery office for possible removal. Surgery office phone number is [phone], fax number is [phone] The Nurse practitioner numbers: Mitzy [phone], Ronald [phone]. Discharge Disposition: HOME SELF-CARE
--- NOTE | 2022-06-16 16:54 | P.PN ---
Subjective Progress Note Date: 06/16/22 Principal diagnosis: malignant pleural effusion, Left breast mass Pt Continues to do well with breathing post thoracentesis. She does have the Pleurx drain placed. No significant pain in the chest wall. She is no longer on oxygen. She is going down to have breast biopsy. Case was reviewed with speech language specialist. Objective - Vital Signs Vital signs: Vital Signs Temp 97.9 F 06/16/22 13:34 Pulse 89 06/16/22 14:00 Resp 17 06/16/22 13:34 BP 111/76 06/16/22 14:00 Pulse Ox 97 06/16/22 14:00 FiO2 Intake & Output 06/15/22 06/16/22 06/16/22 18:59 06:59 18:59 Intake Total 360 400 Balance 360 400 Intake: Oral 360 400 Other: Voiding Method Toilet Toilet # Voids 2 1 - Constitutional General appearance: Present: average body habitus, cooperative, no acute distress - EENT Eyes: Present: anicteric sclerae - Respiratory Details: resp even unlabored at rest - Neurologic Neurologic: Present: CNII-XII intact - Musculoskeletal Musculoskeletal: Present: generalized weakness, strength equal bilaterally - Psychiatric Psychiatric: Present: A&O x's 3, appropriate affect, intact judgment & insight - Labs CBC & Chem 7: 06/15/22 04:46 06/15/22 04:46 Labs: Abnormal Lab Results - Last 24 Hours (Table) 06/15/22 06/15/22 Range/Units 16:44 21:08 POC Glucose (mg/dL) 197 H 199 H (70-110) mg/dL Assessment and Plan (1) Adenocarcinoma Status: Acute Priority: High Code(s): C80.1 - MALIGNANT (PRIMARY) NEOPLASM, UNSPECIFIED SNOMED Code(s): 678313370 (2) Shortness of breath Status: Acute Priority: High Code(s): R06.02 - SHORTNESS OF BREATH SNOMED Code(s): 414397806 Plan: Adenocarcinoma: -Recently hospitalized with compressive atelectasis, bilateral upper lung nodules, right pleural effusion which required thoracentesis on 06/04/2022 with 1500 L drained. Cytology results returned on 06/11/21, positive for metastatic adenocarcinoma, immunostaining results indicating breast is the most likely primary site of origin, with less likely primary lung origin. -Malignant effusion will continue to recur until the underlying cause is treated. S/P insertion of pleurex drain. -CT CAP, no lesions noted other then pl effusion. -Physical exam revealed left breast mass. US revealed breast mass and possible LN. IR consulted for core biopsy of the breast mass. Interventional Radiology Nurse reported that post breast biopsy mammogram is recommended to verify clip placement and mammograms cannot be done inpatient. Case discussed with Dr. Carrasquillo. As patient is not a surgical candidate (patient has metastatic disease to the pleural fluid) verification of placement of a clip is not necessary. This was discussed with the patient, daughter at bedside. They verbalized understanding. -Pt is ok from an Oncology standpoint pt is ok for DC Post biopsy and once cleared by Attending and all other Consulting MDs -Patient will be called with follow-up appt.
== END 2022-06-16 15:24 | disposition home or self-care (01) | DRG 180 ==
LOC: EC 19:40 → 4SSUR 22:48
PROVIDERS: ADMIT Family Medicine; ATTEND Family Medicine
PROC: 0W9930Z Drainage of Right Pleural Cavity with Drainage Device, Percutaneous Approach (ICD-10-PCS; principal; 2022-06-14 10:00)
DX: C78.01 Secondary malignant neoplasm of right lung (principal); J96.01 Acute respiratory failure with hypoxia; J91.0 Malignant pleural effusion; J98.11 Atelectasis; C50.912 Malignant neoplasm of unspecified site of left female breast; C78.02 Secondary malignant neoplasm of left lung; E03.9 Hypothyroidism, unspecified; R00.0 Tachycardia, unspecified; E78.5 Hyperlipidemia, unspecified; Z79.890 Hormone replacement therapy; Z79.899 Other long term (current) drug therapy; Z79.84 Long term (current) use of oral hypoglycemic drugs; Z91.013 Allergy to seafood; Z88.2 Allergy status to sulfonamides
CPT/HCPCS: 36415; 71045; 71046; 71260; 74177; 80048; 80053; 83036; 83735; 83880; 84484; 85025; 85610; 85730; 86300; 88305; 88341; 88342; 93005; 94760; 99285